=== PATIENT | female | born 1975 | race Caucasian/White ===

== ENCOUNTER 2017-07-07 20:33 | Observation (INO) | payer MEDICAID ==
[2017-07-07] MEDS ORDERED: Sodium Chloride 0.9% 1,000 ML IV ONE (20:41)
[2017-07-07] MEDS ORDERED: Ondansetron 4 MG/2 ML SDV IVPUSH ONE (21:01)
[2017-07-07] MEDS ORDERED: Ketorolac 30 MG/ML SDV IVPUSH ONE (21:01)
--- NOTE | 2017-07-07 21:01 | EDM.PDOC ---
<LometaNima Floresn - Last Filed: 07/08/17 00:30> ED HPI GENERAL MEDICAL PROBLEM - General Chief Complaint: Abdominal Pain Stated Complaint: PT HAS STOMACH PAINS Time Seen by Provider: 07/07/17 20:40 - History of Present Illness INITIAL COMMENTS - FREE TEXT/NARRATIVE: I've seen and evaluated the patient agree with above Nausea vomiting diarrhea over the last week guarding with rebound tenderness obturator positive Stable afebrile White count 6 Assessment Gastroenteritis Appendix tip in large no secondary inflammatory changes Plan Patient discussed with Dr. Gruber will admit the patient for observation with the hospitalist service Dr. Gruber will reevaluate in consult - Related Data Allergies Allergy/AdvReac Type Severity Reaction Status Date / Time clarithromycin [From Biaxin] Allergy Hives Verified 07/07/17 20:47 sulfamethoxazole Allergy Hives Verified 07/07/17 20:47 [From Bactrim] trimethoprim [From Bactrim] Allergy Hives Verified 07/07/17 20:47 Home Meds: Home Meds Omeprazole 40 mg PO DAILY 07/07/17 [History] ED ROS GENERAL - Review of Systems Review Of Systems: ROS reveals no pertinent complaints other than HPI. ED EXAM, GI/ABD - Physical Exam Exam: See Below Course - Vital Signs Last Recorded V/S: Last Vital Signs Temp 97.4 F 07/08/17 15:40 Pulse 76 07/08/17 18:40 Resp 18 07/08/17 18:40 BP 119/66 07/08/17 18:40 Pulse Ox 97 07/08/17 18:40 - Orders/Labs/Meds Orders: Medication Orders Acetaminophen (Tylenol) 650 mg PO Q6H PRN PRN Reason: Pain (mild 1-3) Diphenhydramine HCl (Benadryl) 25 mg PO Q4H PRN PRN Reason: Itching Docusate Sodium (Colace) 100 mg PO BID PRN PRN Reason: Constipation Fentanyl (Sublimaze) 50 mcg IVPUSH Q5M PRN PRN Reason: Pain (severe 7-10) Stop: 07/09/17 14:26 Lactated Ringer's (Ringers, Lactated) 1,000 mls @ 125 mls/hr IV ASDIRECTED [facility] Last Admin: 07/08/17 09:31 Dose: 125 mls/hr Morphine Sulfate (Morphine) 2 mg IVPUSH Q1H PRN PRN Reason: Pain (severe 7-10) Ondansetron HCl (Zofran) 4 mg IVPUSH Q4H PRN PRN Reason: Nausea Oxycodone/Acetaminophen (Percocet 325-5 Mg) 2 tab PO Q4H PRN PRN Reason: Pain (moderate 4-6) Last Admin: 07/08/17 20:26 Dose: 2 tab Promethazine HCl (Phenergan) 25 mg IM Q6H PRN PRN Reason: Nausea Labs: Laboratory Tests 07/07/17 07/07/17 07/07/17 Range/Units 20:50 20:50 20:50 WBC 6.57 (4.0-11.0) K/uL RBC 5.17 (4.30-5.90) M/uL Hgb 14.3 (12.0-16.0) g/dL Hct 42.7 (36.0-46.0) % MCV 82.6 (80.0-98.0) fL MCH 27.7 (27.0-32.0) pg MCHC 33.5 (31.0-37.0) g/dL RDW Std Deviation 42.3 (28.0-62.0) fl RDW Coeff of Jenni 14 (11.0-15.0) % Plt Count 205 (150-400) K/uL MPV 11.40 (7.40-12.00) fL Neut % (Auto) 67.7 (48.0-80.0) % Lymph % (Auto) 24.2 (16.0-40.0) % [place] % (Auto) 7.3 (0.0-15.0) % Eos % (Auto) 0.6 (0.0-7.0) % Baso % (Auto) 0.2 (0.0-1.5) % Neut # (Auto) 4.5 (1.4-5.7) K/uL Lymph # (Auto) 1.6 (0.6-2.4) K/uL [place] # (Auto) 0.5 (0.0-0.8) K/uL Eos # (Auto) 0.0 (0.0-0.7) K/uL Baso # (Auto) 0.0 (0.0-0.1) K/uL Nucleated RBC % 0.0 /100WBC Nucleated RBCs # 0 K/uL Sodium 139 (136-145) mmol/L Potassium 4.5 (3.5-5.1) mmol/L Chloride 105 (98-107) mmol/L Carbon Dioxide 22.8 (21.0-32.0) mmol/L BUN 16 (7.0-18.0) mg/dL Creatinine 0.8 (0.6-1.0) mg/dL Est Cr Clr Drug Dosing 104.48 mL/min Estimated GFR (MDRD) > 60.0 ml/min Glucose 124 H (74-106) mg/dL Calcium 9.2 (8.5-10.1) mg/dL Total Bilirubin 0.3 (0.2-1.0) mg/dL AST 34 (15-37) IU/L ALT 65 H (14-63) IU/L Alkaline Phosphatase 87 (46-116) U/L Total Protein 7.8 (6.4-8.2) g/dL Albumin 4.1 (3.4-5.0) g/dL Globulin 3.7 H (2.0-3.5) g/dL Albumin/Globulin Ratio 1.1 L (1.3-2.8) Amylase (25-115) U/L Lipase (73-393) U/L Urine Color YELLOW Urine Appearance CLEAR Urine pH 6.0 (5.0-8.0) Ur Specific [place] >= 1.030 (1.001-1.035) Urine Protein TRACE (NEGATIVE) mg/dL Urine Glucose (UA) NEGATIVE (NEGATIVE) mg/dL Urine Ketones NEGATIVE (NEGATIVE) mg/dL Urine Occult Blood NEGATIVE (NEGATIVE) Urine Nitrite NEGATIVE (NEGATIVE) Urine Bilirubin SMALL H (NEGATIVE) Urine Ictotest NEGATIVE Urine Urobilinogen 1.0 (<2.0) EU/dL Ur Leukocyte Esterase NEGATIVE (NEGATIVE) Urine RBC 0-1 (0-2/HPF) Urine WBC 0-1 (0-5/HPF) Ur Epithelial Cells MODERATE (NONE-FEW) Urine Bacteria RARE (NEGATIVE) Urine HCG, Qual (NEGATIVE) H. pylori IgG Antibody (NEG) 07/07/17 07/07/17 07/07/17 Range/Units 20:50 20:50 20:50 WBC (4.0-11.0) K/uL RBC (4.30-5.90) M/uL Hgb (12.0-16.0) g/dL Hct (36.0-46.0) % MCV (80.0-98.0) fL MCH (27.0-32.0) pg MCHC (31.0-37.0) g/dL RDW Std Deviation (28.0-62.0) fl RDW Coeff of Jenni (11.0-15.0) % Plt Count (150-400) K/uL MPV (7.40-12.00) fL Neut % (Auto) (48.0-80.0) % Lymph % (Auto) (16.0-40.0) % [place] % (Auto) (0.0-15.0) % Eos % (Auto) (0.0-7.0) % Baso % (Auto) (0.0-1.5) % Neut # (Auto) (1.4-5.7) K/uL Lymph # (Auto) (0.6-2.4) K/uL [place] # (Auto) (0.0-0.8) K/uL Eos # (Auto) (0.0-0.7) K/uL Baso # (Auto) (0.0-0.1) K/uL Nucleated RBC % /100WBC Nucleated RBCs # K/uL Sodium (136-145) mmol/L Potassium (3.5-5.1) mmol/L Chloride (98-107) mmol/L Carbon Dioxide (21.0-32.0) mmol/L BUN (7.0-18.0) mg/dL Creatinine (0.6-1.0) mg/dL Est Cr Clr Drug Dosing mL/min Estimated GFR (MDRD) ml/min Glucose (74-106) mg/dL Calcium (8.5-10.1) mg/dL Total Bilirubin (0.2-1.0) mg/dL AST (15-37) IU/L ALT (14-63) IU/L Alkaline Phosphatase (46-116) U/L Total Protein (6.4-8.2) g/dL Albumin (3.4-5.0) g/dL Globulin (2.0-3.5) g/dL Albumin/Globulin Ratio (1.3-2.8) Amylase 55 (25-115) U/L Lipase 166 (73-393) U/L Urine Color Urine Appearance Urine pH (5.0-8.0) Ur Specific [place] (1.001-1.035) Urine Protein (NEGATIVE) mg/dL Urine Glucose (UA) (NEGATIVE) mg/dL Urine Ketones (NEGATIVE) mg/dL Urine Occult Blood (NEGATIVE) Urine Nitrite (NEGATIVE) Urine Bilirubin (NEGATIVE) Urine Ictotest Urine Urobilinogen (<2.0) EU/dL Ur Leukocyte Esterase (NEGATIVE) Urine RBC (0-2/HPF) Urine WBC (0-5/HPF) Ur Epithelial Cells (NONE-FEW) Urine Bacteria (NEGATIVE) Urine HCG, Qual NEGATIVE (NEGATIVE) H. pylori IgG Antibody NEGATIVE (NEG) Meds: Medications Generic Name Dose Route Start Last Admin Trade Name Frefaustino PRN Reason Stop Dose Admin Acetaminophen 650 mg 07/08/17 15:06 Tylenol PO Q6H PRN Pain (mild 1-3) Diphenhydramine HCl 25 mg 07/08/17 15:06 Benadryl PO Q4H PRN Itching Docusate Sodium 100 mg 07/08/17 15:06 Colace PO BID PRN Constipation Fentanyl 50 mcg 07/08/17 14:26 Sublimaze IVPUSH 07/09/17 14:26 Q5M PRN Pain (severe 7-10) Lactated Ringer's 1,000 mls @ 125 mls/hr 07/08/17 00:45 07/08/17 09:31 Ringers, Lactated IV 125 mls/hr ASDIRECTED ALMA DELIA Administration Morphine Sulfate 2 mg 07/08/17 15:11 Morphine IVPUSH Q1H PRN Pain (severe 7-10) Ondansetron HCl 4 mg 07/08/17 00:34 Zofran IVPUSH Q4H PRN Nausea Oxycodone/Acetaminophen 2 tab 07/08/17 15:06 07/08/17 20:26 Percocet 325-5 Mg PO 2 tab Q4H PRN Administration Pain (moderate 4-6) Promethazine HCl 25 mg 07/08/17 15:06 Phenergan IM Q6H PRN Nausea Discontinued Medications Generic Name Dose Route Start Last Admin Trade Name Freq PRN Reason Stop Dose Admin Bupivacaine HCl Confirm 07/08/17 11:51 Sensorcaine-Mpf 0.5% Administered 07/08/17 11:52 Dose 10 ml .ROUTE .STK-MED ONE Bupivacaine HCl Confirm 07/08/17 12:47 Sensorcaine-Mpf 0.5% Administered 07/08/17 12:48 Dose 30 ml .ROUTE .STK-MED ONE Cefazolin Sodium Confirm 07/08/17 11:51 Ancef Administered 07/08/17 11:52 Dose 1 gm .ROUTE .STK-MED ONE Cefazolin Sodium Confirm 07/08/17 12:46 Ancef Administered 07/08/17 12:47 Dose 1 gm .ROUTE .STK-MED ONE Cefoxitin Sodium Confirm 07/08/17 14:04 Mefoxin Administered 07/08/17 14:05 Dose 1 gm .ROUTE .STK-MED ONE Dicyclomine HCl 10 mg 07/07/17 21:30 07/07/17 21:57 Bentyl PO 07/07/17 21:31 10 mg ONETIME ONE Administration Fentanyl Confirm 07/08/17 12:57 Sublimaze Administered 07/08/17 12:58 Dose 250 mcg .ROUTE .STK-MED ONE Fentanyl Confirm 07/08/17 13:05 Sublimaze Administered 07/08/17 13:06 Dose 100 mcg .ROUTE .STK-MED ONE Fentanyl Confirm 07/08/17 14:10 Sublimaze Administered 07/08/17 14:11 Dose 100 mcg .ROUTE .STK-MED ONE Sodium Chloride 1,000 mls @ 999 mls/hr 07/07/17 20:41 07/07/17 20:51 Normal Saline IV 07/07/17 21:41 999 mls/hr STAT ONE Administration Sodium Chloride 1,000 mls @ 125 mls/hr 07/08/17 00:30 07/08/17 00:40 Normal Saline IV 125 mls/hr STAT ALMA DELIA Administration Sodium Chloride 1,000 mls @ 125 mls/hr 07/08/17 00:45 Normal Saline IV STAT ALMA DELIA Cefoxitin Sodium 2 gm/ Premix 50 mls @ 100 mls/hr 07/08/17 07:26 07/08/17 08: 44 IV 07/08/17 07:55 100 mls/hr ONETIME ONE Administration Iopamidol 100 ml 07/07/17 21:09 07/07/17 21:11 Isovue Multipack-370 (76%) IVPUSH 07/07/17 21:10 100 ml ONETIME STA Administration Ketorolac Tromethamine 30 mg 07/07/17 21:01 07/07/17 21:08 Toradol IVPUSH 07/07/17 21:02 30 mg ONETIME ONE Administration Lidocaine Confirm 07/08/17 12:56 Xylocaine-Mpf 2% Administered 07/08/17 12:57 Dose 10 ml .ROUTE .STK-MED ONE Midazolam HCl Confirm 07/08/17 12:57 Versed 1 Mg/Ml Administered 07/08/17 12:58 Dose 2 mg .ROUTE .STK-MED ONE Morphine Sulfate 2 mg 07/08/17 00:34 07/08/17 02:01 Morphine IVPUSH 07/09/17 00:35 2 mg Q2H PRN Administration Pain (severe 7-10) Morphine Sulfate 2 mg 07/08/17 07:30 Morphine IVPUSH Q2H PRN Pain (severe 7-10) Ondansetron HCl 4 mg 07/07/17 21:01 07/07/17 21:09 Zofran IVPUSH 07/07/17 21:02 4 mg ONETIME ONE Administration Ondansetron HCl Confirm 07/08/17 14:39 Zofran Administered 07/08/17 14:40 Dose 4 mg .ROUTE .STK-MED ONE Propofol Confirm 07/08/17 12:57 Diprivan 20 Ml Administered 07/08/17 12:58 Dose 400 mg .ROUTE .STK-MED ONE Rocuronium Mcdougal Confirm 07/08/17 12:57 Zemuron Administered 07/08/17 12:58 Dose 100 mg .ROUTE .STK-MED ONE Departure - Departure Time of Disposition: 00:31 Disposition: Refer to Observation Condition: Fair Clinical Impression: Gastroenteritis Abdominal pain Qualifiers: Abdominal location: right lower quadrant Qualified Code(s): R10.31 - Right lower quadrant pain - Discharge Information <Chely Tena E - Last Filed: 07/08/17 20:39> ED HPI GENERAL MEDICAL PROBLEM - General Source of Information: Reports: Patient History Limitations: Reports: No Limitations - History of Present Illness INITIAL COMMENTS - FREE TEXT/NARRATIVE: HISTORY AND PHYSICAL: History of present illness: Patient is a 42-year-old female who presents to the emergency room with complaints of generalized abdominal pain, nausea and diarrhea 1 week. She states that she saw a provider 4-5 days ago and was diagnosed with viral gastroenteritis based on her symptoms. She states her symptoms have not improved since that time and is concerned that "something worse going on". Pain starts to the low abdomen and radiates up to her epigastrium. Denies any vaginal bleeding, discharge. Denies any dysuria. She denies any fever, chills, chest pain or shortness of breath. History of stomach ulcers which she intermittently takes Prilosec for. Review of systems: As per history of present illness and below otherwise all systems reviewed and negative. Past medical history: As per history of present illness and as reviewed below otherwise noncontributory. Surgical history: As per history of present illness and as reviewed below otherwise noncontributory. Social history: No reported history of drug or alcohol abuse. Family history: As per history of present illness and as reviewed below otherwise noncontributory. Physical exam: Gen.: Well-developed and well-nourished 42-year-old female. Alert and oriented. Nontoxic appearing and in no acute distress. HEENT: Atraumatic, normocephalic, pupils reactive, negative for conjunctival pallor or scleral icterus, mucous membranes moist, throat clear, neck supple, nontender, trachea midline. Lungs: Clear to auscultation, breath sounds equal bilaterally, chest nontender. Heart: S1S2, regular rate and rhythm Abdomen: Soft, nondistended, use mild tenderness throughout. No rebound tenderness. Negative for masses or hepatosplenomegaly. Negative for costovertebral tenderness. Pelvis: Stable nontender. Genitourinary: Deferred. Rectal: Deferred. Extremities: Atraumatic, negative for cords or calf pain. Neurovascular unremarkable. Neuro: Awake, alert, oriented. Cranial nerves II through XII unremarkable. Cerebellum unremarkable. Motor and sensory unremarkable throughout. Exam nonfocal. CBC, CMP, amylase, lipase, H. pylori and UA/urine are within normal limits. CT of the abdomen/pelvis results are pending. Patient signed out to Dr. Grace at 2200. He will disposition the patient. Diagnostics: CBC, CMP, amylase, lipase, H.pylori, CT abdomen and pelvis Therapeutics: IV fluid, Zofran, Toradol, Bentyl Impression: Abdominal pain r/o early appendicitis Plan: Observation admission to Med/surg Definitive disposition and diagnosis as appropriate pending reevaluation and review of above. 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, Fibroids, Other (See Below) Other OB/BYN History: ovarian cyst x 3 Psychiatric History: Reports: Depression - Past Surgical History Female Surgical History: Reports: Breast Biopsy, Cystectomy Social & Family History - Family History Family Medical History: Noncontributory GI: Reports: GERD, GI bleed, Other (See Below) Other GI Family History: Chron's disease : Reports: Cystic Kidney Disease, Renal Calculus OBGYN: Reports: Ectopic , Fibroids Neurological: Reports: MS, Seizure Psychiatric: Reports: Depression Endocrine/Metabolic: Reports: Diabetes, type II Oncologic: Reports: Brain, Breast - Tobacco Use Smoking Status *Q: Never Smoker Years of Tobacco use: 20 Second Hand Smoke Exposure: Yes - Alcohol Use Days Per Week of Alcohol Use: 0 Number of Drinks Per Day: 0 Total Drinks Per Week: 0 - Recreational Drug Use Recreational Drug Use: No Drug Use in Last 12 Months: No Course - Orders/Labs/Meds Labs: Laboratory Tests 07/07/17 07/07/17 07/07/17 Range/Units 20:50 20:50 20:50 WBC 6.57 (4.0-11.0) K/uL RBC 5.17 (4.30-5.90) M/uL Hgb 14.3 (12.0-16.0) g/dL Hct 42.7 (36.0-46.0) % MCV 82.6 (80.0-98.0) fL MCH 27.7 (27.0-32.0) pg MCHC 33.5 (31.0-37.0) g/dL RDW Std Deviation 42.3 (28.0-62.0) fl RDW Coeff of Jenni 14 (11.0-15.0) % Plt Count 205 (150-400) K/uL MPV 11.40 (7.40-12.00) fL Neut % (Auto) 67.7 (48.0-80.0) % Lymph % (Auto) 24.2 (16.0-40.0) % [place] % (Auto) 7.3 (0.0-15.0) % Eos % (Auto) 0.6 (0.0-7.0) % Baso % (Auto) 0.2 (0.0-1.5) % Neut # (Auto) 4.5 (1.4-5.7) K/uL Lymph # (Auto) 1.6 (0.6-2.4) K/uL [place] # (Auto) 0.5 (0.0-0.8) K/uL Eos # (Auto) 0.0 (0.0-0.7) K/uL Baso # (Auto) 0.0 (0.0-0.1) K/uL Nucleated RBC % 0.0 /100WBC Nucleated RBCs # 0 K/uL Sodium 139 (136-145) mmol/L Potassium 4.5 (3.5-5.1) mmol/L Chloride 105 (98-107) mmol/L Carbon Dioxide 22.8 (21.0-32.0) mmol/L BUN 16 (7.0-18.0) mg/dL Creatinine 0.8 (0.6-1.0) mg/dL Est Cr Clr Drug Dosing 104.48 mL/min Estimated GFR (MDRD) > 60.0 ml/min Glucose 124 H (74-106) mg/dL Calcium 9.2 (8.5-10.1) mg/dL Total Bilirubin 0.3 (0.2-1.0) mg/dL AST 34 (15-37) IU/L ALT 65 H (14-63) IU/L Alkaline Phosphatase 87 (46-116) U/L Total Protein 7.8 (6.4-8.2) g/dL Albumin 4.1 (3.4-5.0) g/dL Globulin 3.7 H (2.0-3.5) g/dL Albumin/Globulin Ratio 1.1 L (1.3-2.8) Amylase (25-115) U/L Lipase (73-393) U/L Urine Color YELLOW Urine Appearance CLEAR Urine pH 6.0 (5.0-8.0) Ur Specific [place] >= 1.030 (1.001-1.035) Urine Protein TRACE (NEGATIVE) mg/dL Urine Glucose (UA) NEGATIVE (NEGATIVE) mg/dL Urine Ketones NEGATIVE (NEGATIVE) mg/dL Urine Occult Blood NEGATIVE (NEGATIVE) Urine Nitrite NEGATIVE (NEGATIVE) Urine Bilirubin SMALL H (NEGATIVE) Urine Ictotest NEGATIVE Urine Urobilinogen 1.0 (<2.0) EU/dL Ur Leukocyte Esterase NEGATIVE (NEGATIVE) Urine RBC 0-1 (0-2/HPF) Urine WBC 0-1 (0-5/HPF) Ur Epithelial Cells MODERATE (NONE-FEW) Urine Bacteria RARE (NEGATIVE) Urine HCG, Qual (NEGATIVE) H. pylori IgG Antibody (NEG) 07/07/17 07/07/17 07/07/17 Range/Units 20:50 20:50 20:50 WBC (4.0-11.0) K/uL RBC (4.30-5.90) M/uL Hgb (12.0-16.0) g/dL Hct (36.0-46.0) % MCV (80.0-98.0) fL MCH (27.0-32.0) pg MCHC (31.0-37.0) g/dL RDW Std Deviation (28.0-62.0) fl RDW Coeff of Jenni (11.0-15.0) % Plt Count (150-400) K/uL MPV (7.40-12.00) fL Neut % (Auto) (48.0-80.0) % Lymph % (Auto) (16.0-40.0) % [place] % (Auto) (0.0-15.0) % Eos % (Auto) (0.0-7.0) % Baso % (Auto) (0.0-1.5) % Neut # (Auto) (1.4-5.7) K/uL Lymph # (Auto) (0.6-2.4) K/uL [place] # (Auto) (0.0-0.8) K/uL Eos # (Auto) (0.0-0.7) K/uL Baso # (Auto) (0.0-0.1) K/uL Nucleated RBC % /100WBC Nucleated RBCs # K/uL Sodium (136-145) mmol/L Potassium (3.5-5.1) mmol/L Chloride (98-107) mmol/L Carbon Dioxide (21.0-32.0) mmol/L BUN (7.0-18.0) mg/dL Creatinine (0.6-1.0) mg/dL Est Cr Clr Drug Dosing mL/min Estimated GFR (MDRD) ml/min Glucose (74-106) mg/dL Calcium (8.5-10.1) mg/dL Total Bilirubin (0.2-1.0) mg/dL AST (15-37) IU/L ALT (14-63) IU/L Alkaline Phosphatase (46-116) U/L Total Protein (6.4-8.2) g/dL Albumin (3.4-5.0) g/dL Globulin (2.0-3.5) g/dL Albumin/Globulin Ratio (1.3-2.8) Amylase 55 (25-115) U/L Lipase 166 (73-393) U/L Urine Color Urine Appearance Urine pH (5.0-8.0) Ur Specific [place] (1.001-1.035) Urine Protein (NEGATIVE) mg/dL Urine Glucose (UA) (NEGATIVE) mg/dL Urine Ketones (NEGATIVE) mg/dL Urine Occult Blood (NEGATIVE) Urine Nitrite (NEGATIVE) Urine Bilirubin (NEGATIVE) Urine Ictotest Urine Urobilinogen (<2.0) EU/dL Ur Leukocyte Esterase (NEGATIVE) Urine RBC (0-2/HPF) Urine WBC (0-5/HPF) Ur Epithelial Cells (NONE-FEW) Urine Bacteria (NEGATIVE) Urine HCG, Qual NEGATIVE (NEGATIVE) H. pylori IgG Antibody NEGATIVE (NEG) Departure - Departure Condition: Fair
[2017-07-07] MEDS ORDERED: Iopamidol 755 MG/ML 500 ML Multipack Bottle IVPUSH STA (21:09)
[2017-07-07 21:26] LABS: CHLORIDE,CL 105 mmol/L (98-107); SODIUM,NA 139 mmol/L (136-145)
[2017-07-07] MEDS ORDERED: Dicyclomine 10 MG Cap PO ONE (21:30)
[2017-07-08] MEDS ORDERED: Sodium Chloride 0.9% 1,000 ML IV SCH ×2 (00:30→00:45)
[2017-07-08] MEDS ORDERED: Ondansetron 4 MG/2 ML SDV IVPUSH PRN (00:34)
[2017-07-08] MEDS ORDERED: Morphine 10 MG/ML Syringe IVPUSH PRN (00:34)
[2017-07-08] MEDS ORDERED: Lactated Ringers 1,000 ML IV SCH (00:45)
[2017-07-08 05:57] LABS: CHLORIDE,CL 108 mmol/L (98-107); SODIUM,NA 141 mmol/L (136-145)
--- NOTE | 2017-07-08 07:09 | PCM.PREANE ---
Preanesthetic Assessment - Anesthesia/Transfusion/Family Hx Anesthesia History: Prior Anesthesia Without Reaction Family History of Anesthesia Reaction: No Transfusion History: No Prior Transfusion(s) - Review of Systems General: No Symptoms Pulmonary: No Symptoms Cardiovascular: No Symptoms Gastrointestinal: No Symptoms Neurological: No Symptoms Other: Reports: None - Physical Assessment NPO Status Date: 07/08/17 NPO Status Time: 01:30 O2 Sat by Pulse Oximetry: 98 Respiratory Rate: 19 Vital Signs: Last Vital Signs Temp 98.4 F 07/08/17 04:00 Pulse 88 07/08/17 04:00 Resp 19 07/08/17 04:00 BP 132/80 07/08/17 04:00 Pulse Ox 98 07/08/17 04:00 Height: 5 ft 10.87 in Weight: 90 kg ASA Class: 2E Mental Status: Alert & Oriented x3 Airway Class: Mallampati = 2 Dentition: Reports: Normal Dentition Thyro-Mental Finger Breadths: 3 Mouth Opening Finger Breadths: 3 ROM/Head Extension: Full Lungs: Clear to Auscultation, Normal Respiratory Effort Cardiovascular: Regular Rate, Regular Rhythm - Lab Values: Laboratory Last Values WBC 5.88 K/uL (4.0-11.0) 07/08/17 04:47 RBC 4.56 M/uL (4.30-5.90) 07/08/17 04:47 Hgb 12.5 g/dL (12.0-16.0) 07/08/17 04:47 Hct 37.7 % (36.0-46.0) 07/08/17 04:47 MCV 82.7 fL (80.0-98.0) 07/08/17 04:47 MCH 27.4 pg (27.0-32.0) 07/08/17 04:47 MCHC 33.2 g/dL (31.0-37.0) 07/08/17 04:47 RDW Std Deviation 42.9 fl (28.0-62.0) 07/08/17 04:47 RDW Coeff of Jenni 14 % (11.0-15.0) 07/08/17 04:47 Plt Count 171 K/uL (150-400) 07/08/17 04:47 MPV 10.70 fL (7.40-12.00) 07/08/17 04:47 Neut % (Auto) 58.6 % (48.0-80.0) 07/08/17 04:47 Lymph % (Auto) 32.5 % (16.0-40.0) 07/08/17 04:47 [place] % (Auto) 8.0 % (0.0-15.0) 07/08/17 04:47 Eos % (Auto) 0.7 % (0.0-7.0) 07/08/17 04:47 Baso % (Auto) 0.2 % (0.0-1.5) 07/08/17 04:47 Neut # (Auto) 3.5 K/uL (1.4-5.7) 07/08/17 04:47 Lymph # (Auto) 1.9 K/uL (0.6-2.4) 07/08/17 04:47 [place] # (Auto) 0.5 K/uL (0.0-0.8) 07/08/17 04:47 Eos # (Auto) 0.0 K/uL (0.0-0.7) 07/08/17 04:47 Baso # (Auto) 0.0 K/uL (0.0-0.1) 07/08/17 04:47 Nucleated RBC % 0.0 /100WBC 07/08/17 04:47 Nucleated RBCs # 0 K/uL 07/08/17 04:47 Sodium 141 mmol/L (136-145) 07/08/17 04:47 Potassium 3.8 mmol/L (3.5-5.1) 07/08/17 04:47 Chloride 108 mmol/L (98-107) H 07/08/17 04:47 Carbon Dioxide 25.2 mmol/L (21.0-32.0) 07/08/17 04:47 BUN 14 mg/dL (7.0-18.0) 07/08/17 04:47 Creatinine 0.7 mg/dL (0.6-1.0) 07/08/17 04:47 Est Cr Clr Drug Dosing 118.88 mL/min 07/08/17 04:47 Estimated GFR (MDRD) > 60.0 ml/min 07/08/17 04:47 Glucose 108 mg/dL (74-106) H 07/08/17 04:47 Calcium 8.4 mg/dL (8.5-10.1) L 07/08/17 04:47 Phosphorus 3.3 mg/dL (2.6-4.7) 07/08/17 04:47 Magnesium 1.5 mg/dL (1.5-2.0) 07/08/17 04:47 Total Bilirubin 0.3 mg/dL (0.2-1.0) 07/08/17 04:47 AST 23 IU/L (15-37) 07/08/17 04:47 ALT 54 IU/L (14-63) 07/08/17 04:47 Alkaline Phosphatase 65 U/L (46-116) 07/08/17 04:47 Total Protein 6.1 g/dL (6.4-8.2) L 07/08/17 04:47 Albumin 3.2 g/dL (3.4-5.0) L 07/08/17 04:47 Globulin 2.9 g/dL (2.0-3.5) 07/08/17 04:47 Albumin/Globulin Ratio 1.1 (1.3-2.8) L 07/08/17 04:47 Amylase 55 U/L (25-115) 07/07/17 20:50 Lipase 166 U/L (73-393) 07/07/17 20:50 Urine Color YELLOW 07/07/17 20:50 Urine Appearance CLEAR 07/07/17 20:50 Urine pH 6.0 (5.0-8.0) 07/07/17 20:50 Ur Specific [place] >= 1.030 (1.001-1.035) 07/07/17 20:50 Urine Protein TRACE mg/dL (NEGATIVE) 07/07/17 20:50 Urine Glucose (UA) NEGATIVE mg/dL (NEGATIVE) 07/07/17 20:50 Urine Ketones NEGATIVE mg/dL (NEGATIVE) 07/07/17 20:50 Urine Occult Blood NEGATIVE (NEGATIVE) 07/07/17 20:50 Urine Nitrite NEGATIVE (NEGATIVE) 07/07/17 20:50 Urine Bilirubin SMALL (NEGATIVE) H 07/07/17 20:50 Urine Ictotest NEGATIVE 07/07/17 20:50 Urine Urobilinogen 1.0 EU/dL (<2.0) 07/07/17 20:50 Ur Leukocyte Esterase NEGATIVE (NEGATIVE) 07/07/17 20:50 Urine RBC 0-1 (0-2/HPF) 07/07/17 20:50 Urine WBC 0-1 (0-5/HPF) 07/07/17 20:50 Ur Epithelial Cells MODERATE (NONE-FEW) 07/07/17 20:50 Urine Bacteria RARE (NEGATIVE) 07/07/17 20:50 Urine HCG, Qual NEGATIVE (NEGATIVE) 07/07/17 20:50 H. pylori IgG Antibody NEGATIVE (NEG) 07/07/17 20:50 - Allergies Allergies/Adverse Reactions: Allergies Allergy/AdvReac Type Severity Reaction Status Date / Time clarithromycin [From Biaxin] Allergy Hives Verified 07/07/17 20:47 sulfamethoxazole Allergy Hives Verified 07/07/17 20:47 [From Bactrim] trimethoprim [From Bactrim] Allergy Hives Verified 07/07/17 20:47 - Acknowledgements Anesthesia Type Planned: General Anesthesia Pt an Appropriate Candidate for the Planned Anesthesia: Yes Alternatives and Risks of Anesthesia Discussed w Pt/Guardian: Yes Pt/Guardian Understands and Agrees with Anesthesia Plan: Yes PreAnesthesia Questionnaire HEENT History: Reports: None Cardiovascular History: Reports: None Respiratory History: Reports: Other (See Below) (Previous Smoker, quit 5 years ago) Gastrointestinal History: Reports: GERD, Other (See Below) (Previous stomach ulcer in the last 12 months) Genitourinary History: Reports: Other (See Below) (Past history of renal stones) 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, 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, Other (See Below) Other OB/BYN History: ovarian cyst x 3 Musculoskeletal History: Reports: None Neurological History: Reports: None Psychiatric History: Reports: Depression Endocrine/Metabolic History: Reports: None Hematologic History: Reports: None Immunologic History: Reports: None Oncologic (Cancer) History: Reports: None Dermatologic History: Reports: None - Infectious Disease History Infectious Disease History: Reports: None - Past Surgical History Female Surgical History: Reports: Breast Biopsy, Cystectomy - SUBSTANCE USE Smoking Status *Q: Former Smoker Tobacco Use Within Last Twelve Months: No Second Hand Smoke Exposure: Yes Days Per Week of Alcohol Use: 0 Number of Drinks Per Day: 0 Total Drinks Per Week: 0 Recreational Drug Use History: No - HOME MEDS Home Medications: Home Meds Omeprazole 40 mg PO DAILY 07/07/17 [History] - CURRENT (IN HOUSE) MEDS Current Meds: Current Medications Sodium Chloride (Normal Saline) 1,000 mls @ 125 mls/hr IV STAT ALMA DELIA Last Admin: 07/08/17 00:40 Dose: 125 mls/hr Sodium Chloride (Normal Saline) 1,000 mls @ 125 mls/hr IV STAT ALMA DELIA Lactated Ringer's (Ringers, Lactated) 1,000 mls @ 125 mls/hr IV ASDIRECTED ALMA DELIA Morphine Sulfate (Morphine) 2 mg IVPUSH Q2H PRN PRN Reason: Pain (severe 7-10) Stop: 07/09/17 00:35 Last Admin: 07/08/17 02:01 Dose: 2 mg Ondansetron HCl (Zofran) 4 mg IVPUSH Q4H PRN PRN Reason: Nausea Discontinued Medications Dicyclomine HCl (Bentyl) 10 mg PO ONETIME ONE Stop: 07/07/17 21:31 Last Admin: 07/07/17 21:57 Dose: 10 mg Sodium Chloride (Normal Saline) 1,000 mls @ 999 mls/hr IV STAT ONE Stop: 07/07/17 21:41 Last Admin: 07/07/17 20:51 Dose: 999 mls/hr Iopamidol (Isovue Multipack-370 (76%)) 100 ml IVPUSH ONETIME STA Stop: 07/07/17 21:10 Last Admin: 07/07/17 21:11 Dose: 100 ml Ketorolac Tromethamine (Toradol) 30 mg IVPUSH ONETIME ONE Stop: 07/07/17 21:02 Last Admin: 07/07/17 21:08 Dose: 30 mg Ondansetron HCl (Zofran) 4 mg IVPUSH ONETIME ONE Stop: 07/07/17 21:02 Last Admin: 07/07/17 21:09 Dose: 4 mg
[2017-07-08] MEDS ORDERED: cefOXitin 2 GM in Premix Bag 1 BAG IV ONE (07:26)
[2017-07-08] MEDS ORDERED: Morphine 4 MG/ML Syringe IVPUSH PRN ×2 (07:30→15:11)
--- NOTE | 2017-07-08 07:32 | PCM.CONS ---
H&P History of Present Illness - General Date of Service: 07/08/17 Admit Problem/Dx: Admission Diagnosis/Problem Admission Diagnosis/Problem Abdominal pain Source of Information: Patient History Limitations: Reports: No Limitations - History of Present Illness Symptom Onset Date: 07/05/17 Duration of Symptoms: Reports: Getting Worse Location: Reports: Abdomen Quality: Reports: Ache, Pressure Severity: Moderate Improves with: Reports: Rest Worsens with: Reports: Movement Context: Reports: Sick Contact Associated Symptoms: Reports: Nausea/Vomiting, Other (Diarrhea) Umbilical ARea Pain Score (Numeric/FACES): 4 - Related Data Allergies/Adverse Reactions: Allergies Allergy/AdvReac Type Severity Reaction Status Date / Time clarithromycin [From Biaxin] Allergy Hives Verified 07/07/17 20:47 sulfamethoxazole Allergy Hives Verified 07/07/17 20:47 [From Bactrim] trimethoprim [From Bactrim] Allergy Hives Verified 07/07/17 20:47 Home Medications: Home Meds Omeprazole 40 mg PO DAILY 07/07/17 [History] Past Medical History HEENT History: Reports: None Cardiovascular History: Reports: None Respiratory History: Reports: Other (See Below) (Previous Smoker, quit 5 years ago) Gastrointestinal History: Reports: GERD, Other (See Below) (Previous stomach ulcer in the last 12 months) Genitourinary History: Reports: Other (See Below) (Past history of renal stones) 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, 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, 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 (See Below) Other OB/BYN History: ovarian cyst x 3 Musculoskeletal History: Reports: None Neurological History: Reports: None Psychiatric History: Reports: Depression Endocrine/Metabolic History: Reports: None Hematologic History: Reports: None Immunologic History: Reports: None Oncologic (Cancer) History: Reports: None Dermatologic History: Reports: None - Infectious Disease History Infectious Disease History: Reports: None - Past Surgical History Female Surgical History: Reports: Breast Biopsy, Cystectomy Social & Family History - Family History Family Medical History: Noncontributory GI: Reports: GERD, GI bleed, Other (See Below) Other GI Family History: Chron's disease : Reports: Cystic Kidney Disease, Renal Calculus OBGYN: Reports: Ectopic , Fibroids Neurological: Reports: MS, Seizure Psychiatric: Reports: Depression Endocrine/Metabolic: Reports: Diabetes, type II Oncologic: Reports: Brain, Breast - Tobacco Use Smoking Status *Q: Former Smoker Years of Tobacco use: 20 Used Tobacco, but Quit: Yes Month/Year Tobacco Last Used: 2012 Second Hand Smoke Exposure: Yes - Alcohol Use Days Per Week of Alcohol Use: 0 Number of Drinks Per Day: 0 Total Drinks Per Week: 0 - Recreational Drug Use Recreational Drug Use: No Drug Use in Last 12 Months: No H&P Review of Systems - Review of Systems: Review Of Systems: See Below General: Reports: Decreased Appetite. Denies: Fever, Chills HEENT: Reports: No Symptoms Pulmonary: Denies: Shortness of Breath, Wheezing Cardiovascular: Denies: Chest Pain Gastrointestinal: Reports: Abdominal Pain, Anorexia, Diarrhea, Nausea, Vomiting Genitourinary: Reports: No Symptoms Musculoskeletal: Reports: No Symptoms Skin: Reports: No Symptoms Psychiatric: Reports: No Symptoms Neurological: Reports: No Symptoms Hematologic/Lymphatic: Reports: No Symptoms Immunologic: Reports: No Symptoms Exam - Exam Exam: See Below - Vital Signs Vital Signs: Last Vital Signs Temp 98.4 F 07/08/17 04:00 Pulse 88 07/08/17 04:00 Resp 19 07/08/17 07:09 BP 132/80 07/08/17 04:00 Pulse Ox 98 07/08/17 07:09 Weight: 198 lb 6.656 oz - Exam General: Alert, Oriented, Cooperative, Moderate Distress HEENT: Conjunctiva Clear, EACs Clear, Pupils Equal, Pupils Reactive Neck: Supple, Trachea Midline Lungs: Clear to Auscultation, Normal Respiratory Effort Cardiovascular: Regular Rate, Regular Rhythm. No: Tachycardia GI/Abdominal Exam: Normal Bowel Sounds, Soft, No Distention, Rebound, Tender, Other (Patient is quite tender over McBurney's point.). No: Guarding, Rigid (Female) Exam: Normal External Exam Rectal (Female) Exam: Deferred Back Exam: Normal Inspection Extremities: Normal Inspection, Normal Range of Motion Peripheral Pulses: 4+: Posterior Tibial (L), Posterior Tibial (R), Dorsalis Pedis (L), Dorsalis Pedis (R) Skin: Warm, Dry, Intact - Patient Data Lab Results Last 24 hrs: Laboratory Results - last 24 hr 07/08/17 07/08/17 Range/Units 04:47 04:47 WBC 5.88 (4.0-11.0) K/uL RBC 4.56 (4.30-5.90) M/uL Hgb 12.5 (12.0-16.0) g/dL Hct 37.7 (36.0-46.0) % MCV 82.7 (80.0-98.0) fL MCH 27.4 (27.0-32.0) pg MCHC 33.2 (31.0-37.0) g/dL RDW Std Deviation 42.9 (28.0-62.0) fl RDW Coeff of Jenni 14 (11.0-15.0) % Plt Count 171 (150-400) K/uL MPV 10.70 (7.40-12.00) fL Neut % (Auto) 58.6 (48.0-80.0) % Lymph % (Auto) 32.5 (16.0-40.0) % [place] % (Auto) 8.0 (0.0-15.0) % Eos % (Auto) 0.7 (0.0-7.0) % Baso % (Auto) 0.2 (0.0-1.5) % Neut # (Auto) 3.5 (1.4-5.7) K/uL Lymph # (Auto) 1.9 (0.6-2.4) K/uL [place] # (Auto) 0.5 (0.0-0.8) K/uL Eos # (Auto) 0.0 (0.0-0.7) K/uL Baso # (Auto) 0.0 (0.0-0.1) K/uL Nucleated RBC % 0.0 /100WBC Nucleated RBCs # 0 K/uL Sodium 141 (136-145) mmol/L Potassium 3.8 (3.5-5.1) mmol/L Chloride 108 H (98-107) mmol/L Carbon Dioxide 25.2 (21.0-32.0) mmol/L BUN 14 (7.0-18.0) mg/dL Creatinine 0.7 (0.6-1.0) mg/dL Est Cr Clr Drug Dosing 118.88 mL/min Estimated GFR (MDRD) > 60.0 ml/min Glucose 108 H (74-106) mg/dL Calcium 8.4 L (8.5-10.1) mg/dL Phosphorus 3.3 (2.6-4.7) mg/dL Magnesium 1.5 (1.5-2.0) mg/dL Total Bilirubin 0.3 (0.2-1.0) mg/dL AST 23 (15-37) IU/L ALT 54 (14-63) IU/L Alkaline Phosphatase 65 (46-116) U/L Total Protein 6.1 L (6.4-8.2) g/dL Albumin 3.2 L (3.4-5.0) g/dL Globulin 2.9 (2.0-3.5) g/dL Albumin/Globulin Ratio 1.1 L (1.3-2.8) Result Diagrams: 07/08/17 04:47 07/08/17 04:47 Consult PN Assessment/Plan Procedures: Procedures ASSAY GLUCOSE BLOOD QUANT (06/25/15) ASSAY OF LIPASE (06/17/16) ASSAY OF PROGESTERONE (09/14/14) ASSAY THYROID STIM HORMONE (03/27/16) CHEST X-RAY 1 VIEW FRONTAL (06/25/14) CHORIONIC GONADOTROPIN ASSAY (09/28/14) CHORIONIC GONADOTROPIN TEST (09/28/14) COMPLETE CBC AUTOMATED (03/27/16) COMPLETE CBC W/AUTO DIFF WBC (05/22/14) COMPREHEN METABOLIC PANEL (09/18/16) CULTURE SCREEN ONLY (04/15/15) ECHO EXAM OF ABDOMEN (05/22/14) EMERGENCY DEPT VISIT (05/22/14) EMERGENCY DEPT VISIT (07/18/13) EMERGENCY DEPT VISIT (07/18/13) GLUCOSE TEST (06/25/15) GLYCOSYLATED HEMOGLOBIN TEST (03/12/15) HELICOBACTER PYLORI ANTIBODY (06/17/16) HPV LOW-RISK TYPES (10/12/14) HYDRATE IV INFUSION ADD-ON (05/22/14) IMMUNOASSAY NONANTIBODY (09/18/16) LAPAROSCOPY LYSIS (06/11/14) METABOLIC PANEL TOTAL CA (06/11/14) PROTHROMBIN TIME (05/22/14) ROUTINE VENIPUNCTURE (06/17/16) SMEAR WET [place] SALINE/INK (05/13/15) THER/PROPH/DIAG INJ IV PUSH (05/22/14) THROMBOPLASTIN TIME PARTIAL (05/22/14) TISSUE EXAM BY PATHOLOGIST (08/29/13) TRANSVAGINAL US NON-OB (07/18/13) TX/PRO/DX INJ NEW DRUG ADDON (05/22/14) URINE BACTERIA CULTURE (06/25/14) URINE CULTURE/COLONY COUNT (10/12/14) URINE TEST (06/11/14) US EXAM ABDOM COMPLETE (06/25/14) US EXAM PELVIC LIMITED (05/22/14) (1) Acute appendicitis SNOMED Code(s): 69644314 Code(s): K35.80 - UNSPECIFIED ACUTE APPENDICITIS Priority: High Current Visit: Yes (2) Abdominal pain SNOMED Code(s): 74687528 Code(s): R10.9 - UNSPECIFIED ABDOMINAL PAIN Priority: High Current Visit : Yes Qualifiers: Abdominal location: right lower quadrant Qualified Code(s): R10.31 - Right lower quadrant pain Problem List Initiated/Reviewed/Updated: Yes My Orders Last 24 Hours: My Active Orders 07/08/17 07:26 Skin Preparation [RC] .PREOP Urinary Catheter Assessment [RC] ASDIRECTED Urinary Catheter Assessment [RC] ASDIRECTED cefOXitin [Mefoxin in Dextrose,Iso-Osm 2 GM/50 ML] 2 gm Premix Bag 1 bag IV ONETIME 07/08/17 07:30 [place] Catheter Insertion [Insert Urinary Catheter] [OM.PC] Q24H Plan: CT scan of the abdomen is read as showing an 11 mm dilatation at the tip of the appendix consistent with an early acute appendicitis without rupture. She also has some mild mesenteric lymphadenopathy. Her physical examination is consistent with an early acute appendicitis. Laparoscopic appendectomy, possible open appendectomy. Both operative procedures, along with the risks, including, but not limited to, bleeding, infection, pneumonia, deep venous thrombosis, pulmonary emboli, myocardial infarction, and adjacent organ injury have been reviewed with the patient who voices understanding, offers no questions and agrees to proceed.
--- NOTE | 2017-07-08 08:14 | PCM.HP ---
H&P History of Present Illness - General Date of Service: 07/08/17 Admit Problem/Dx: Admission Diagnosis/Problem Admission Diagnosis/Problem Abdominal pain Source of Information: Patient History Limitations: Reports: No Limitations - History of Present Illness Initial Comments - Free Text/Narative: This 42 year old female with pmh of endometriosis on Depo provera shots, hx of ovarian cysts , and GERD presented to the ED with 1 week history of abdominal pain, poor appetite and N/V. She reports initially this started last Wednesday with lower diffuse abdominal pain, N/V and some heartburn. She saw her PCP, which felt this wsa gastroenteritis. She reports this continued to worsening and the pain became more intense with general malaise and a temp yesterday of 101 F and slight diarrhea. She denies chest pain SOB or URI. No urinary symptoms. No black or bloody BMs. She quit smoking 4-5 years ago, does not use alcohol or recreational drugs. In the ED labwork WNL, abd CT was obtainted which revealed dilated appendix up to [address] Gruber was consulted for surgical evaluation. She was admitted for abdominal pain. Umbilical ARea Pain Score (Numeric/FACES): 4 - Related Data Allergies/Adverse Reactions: Allergies Allergy/AdvReac Type Severity Reaction Status Date / Time clarithromycin [From Biaxin] Allergy Hives Verified 07/07/17 20:47 sulfamethoxazole Allergy Hives Verified 07/07/17 20:47 [From Bactrim] trimethoprim [From Bactrim] Allergy Hives Verified 07/07/17 20:47 Home Medications: Home Meds Omeprazole 40 mg PO DAILY 07/07/17 [History] Past Medical History HEENT History: Reports: None Cardiovascular History: Reports: None. 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 Denies: CVA, TIA Psychiatric History: Reports: Depression Endocrine/Metabolic History: Reports: None. Denies: Diabetes, Type II, Hypothyroidism Hematologic History: Reports: None Immunologic History: Reports: None Oncologic (Cancer) History: Reports: None Dermatologic History: Reports: None - Infectious Disease History Infectious Disease History: Reports: None - Past Surgical History Female Surgical History: Reports: Breast Biopsy, Cystectomy, Other (See Below ) (ovarian cyst removal x 3) Social & Family History - Family History Family Medical History: Noncontributory GI: Reports: GERD, GI bleed, Other (See Below) Other GI Family History: Chron's disease : Reports: Cystic Kidney Disease, Renal Calculus OBGYN: Reports: Ectopic , Fibroids Neurological: Reports: MS, Seizure Psychiatric: Reports: Depression Endocrine/Metabolic: Reports: Diabetes, type II Oncologic: Reports: Brain, Breast - Tobacco Use Smoking Status *Q: Former Smoker Years of Tobacco use: 20 Used Tobacco, but Quit: Yes Month/Year Tobacco Last Used: 2012 Second Hand Smoke Exposure: Yes - Alcohol Use Alcohol Use History: No Days Per Week of Alcohol Use: 0 Number of Drinks Per Day: 0 Total Drinks Per Week: 0 - Recreational Drug Use Recreational Drug Use: No Drug Use in Last 12 Months: No - Living Situation & Occupation Living situation: Reports: with Family Occupation: Employed H&P Review of Systems - Review of Systems: Review Of Systems: See Below General: Reports: Fever, Malaise, Weakness, Fatigue HEENT: Reports: No Symptoms. Denies: Headaches, Sinus Congestion, Sore Throat, Vertigo Pulmonary: Reports: No Symptoms. Denies: Shortness of Breath, Cough, Sputum Cardiovascular: Reports: No Symptoms. Denies: Chest Pain, Palpitations, Edema Gastrointestinal: Reports: Abdominal Pain, Anorexia, Decreased Appetite, Distension (bloating), Nausea, Vomiting. Denies: Black Stool, Bloody Stool, Hematemesis, Hematochezia, Stool Incontinence Genitourinary: Reports: No Symptoms. Denies: Dysuria, Frequency, Burning, Pain , Urgency Musculoskeletal: Reports: No Symptoms. Denies: Neck Pain Psychiatric: Reports: No Symptoms. Denies: Confusion Hematologic/Lymphatic: Reports: No Symptoms Immunologic: Reports: No Symptoms Exam - Exam Exam: See Below - Vital Signs Vital Signs: Last Vital Signs Temp 98.4 F 07/08/17 04:00 Pulse 88 07/08/17 04:00 Resp 19 07/08/17 07:09 BP 132/80 07/08/17 04:00 Pulse Ox 98 07/08/17 07:09 Weight: 90 kg - Exam Quality Assessment: DVT Prophylaxis General: Alert, Oriented, Cooperative HEENT: Conjunctiva Clear, Hearing Intact, Normal Nasal Septum, Posterior Pharynx Clear, TMs Clear, PERRLA. No: Mucosa Moist & Cecilia (appera slighlty dry , no cracking. ) Neck: Supple, Trachea Midline, 2 Lungs: Clear to Auscultation, Normal Respiratory Effort Cardiovascular: Regular Rate, Regular Rhythm GI/Abdominal Exam: Normal Bowel Sounds, Soft, No Mass, Rebound, Tender (RLQ). No: Distended, Guarding, Rigid Back Exam: Normal Inspection, Full Range of Motion, NT Extremities: Normal Inspection, Normal Range of Motion, Non-Tender, No Pedal Edema, Normal Capillary Refill Neuro Extensive - Mental Status: Alert, Oriented x3, Normal Mood/Affect Neuro Extensive - Motor, Sensory, Reflexes: CN II-XII Intact Psychiatric: Alert, Normal Affect, Normal Mood - Patient Data Lab Results Last 24 hrs: Laboratory Results - last 24 hr 07/08/17 07/08/17 Range/Units 04:47 04:47 WBC 5.88 (4.0-11.0) K/uL RBC 4.56 (4.30-5.90) M/uL Hgb 12.5 (12.0-16.0) g/dL Hct 37.7 (36.0-46.0) % MCV 82.7 (80.0-98.0) fL MCH 27.4 (27.0-32.0) pg MCHC 33.2 (31.0-37.0) g/dL RDW Std Deviation 42.9 (28.0-62.0) fl RDW Coeff of Jenni 14 (11.0-15.0) % Plt Count 171 (150-400) K/uL MPV 10.70 (7.40-12.00) fL Neut % (Auto) 58.6 (48.0-80.0) % Lymph % (Auto) 32.5 (16.0-40.0) % Elliott % (Auto) 8.0 (0.0-15.0) % Eos % (Auto) 0.7 (0.0-7.0) % Baso % (Auto) 0.2 (0.0-1.5) % Neut # (Auto) 3.5 (1.4-5.7) K/uL Lymph # (Auto) 1.9 (0.6-2.4) K/uL Elliott # (Auto) 0.5 (0.0-0.8) K/uL Eos # (Auto) 0.0 (0.0-0.7) K/uL Baso # (Auto) 0.0 (0.0-0.1) K/uL Nucleated RBC % 0.0 /100WBC Nucleated RBCs # 0 K/uL Sodium 141 (136-145) mmol/L Potassium 3.8 (3.5-5.1) mmol/L Chloride 108 H (98-107) mmol/L Carbon Dioxide 25.2 (21.0-32.0) mmol/L BUN 14 (7.0-18.0) mg/dL Creatinine 0.7 (0.6-1.0) mg/dL Est Cr Clr Drug Dosing 118.88 mL/min Estimated GFR (MDRD) > 60.0 ml/min Glucose 108 H (74-106) mg/dL Calcium 8.4 L (8.5-10.1) mg/dL Phosphorus 3.3 (2.6-4.7) mg/dL Magnesium 1.5 (1.5-2.0) mg/dL Total Bilirubin 0.3 (0.2-1.0) mg/dL AST 23 (15-37) IU/L ALT 54 (14-63) IU/L Alkaline Phosphatase 65 (46-116) U/L Total Protein 6.1 L (6.4-8.2) g/dL Albumin 3.2 L (3.4-5.0) g/dL Globulin 2.9 (2.0-3.5) g/dL Albumin/Globulin Ratio 1.1 L (1.3-2.8) Result Diagrams: 07/08/17 04:47 07/08/17 04:47 *Q Meaningful Use (ADM) - VTE *Q VTE Criteria *Q: - VTE Risk Assess *Q Each Risk Factor Represents 1 Point: None Total Score 1 Point Risk Factors: 0 Each Risk Factor Represents 2 Points: None Total Score 2 Point Risk Factors: 0 Each Risk Factor Represents 3 Points: None Total Score 3 Point Risk Factors: 0 Each Risk Factor Represents 5 Points: None Total Score 5 Point Risk Factors: 0 Venous Thromboembolism Risk Factor Score *Q: 0 - Stroke *Q Stroke Criteria *Q: - AMI *Q AMI Criteria *Q: - Problem List (1) Acute appendicitis SNOMED Code(s): 30301968 ICD Code: K35.80 - UNSPECIFIED ACUTE APPENDICITIS Status: Acute Priority : High Current Visit: Yes (2) Abdominal pain SNOMED Code(s): 50065055 ICD Code: R10.9 - UNSPECIFIED ABDOMINAL PAIN Status: Acute Priority: High Current Visit: Yes Qualifiers: Abdominal location: right lower quadrant Qualified Code(s): R10.31 - Right lower quadrant pain Problem List Initiated/Reviewed/Updated: Yes Orders Last 24hrs: Active Orders 24 hr Category Date Time Status Patient Status [ADT] Routine ADT 07/08/17 00:34 Active Antiembolic Devices [RC] PER UNIT ROUTINE Care 07/08/17 00:35 Active Pollack Catheter Insertion [Insert Urinary Catheter] [OM. Care 07/08/17 07:30 Ordered PC] Q24H Oxygen Therapy [RC] PRN Care 07/08/17 00:34 Active Skin Preparation [RC] .PREOP Care 07/08/17 07:26 Active Up With Assistance [RC] ASDIRECTED Care 07/08/17 00:34 Active Urinary Catheter Assessment [RC] ASDIRECTED Care 07/08/17 07:26 Active Urinary Catheter Assessment [RC] ASDIRECTED Care 07/08/17 07:26 Active VTE/DVT Education [RC] PER UNIT ROUTINE Care 07/08/17 00:34 Active Vital Signs [RC] Q4H Care 07/08/17 00:34 Active Nothing per Oral Now Diet [DIET] Diet 07/08/17 Breakfast Active CBC WITH AUTO DIFF [HEME] AM Lab 07/09/17 05:11 Ordered CBC WITH AUTO DIFF [HEME] AM Lab 07/10/17 05:11 Ordered COMPREHENSIVE METABOLIC PN,CMP [CHEM] AM Lab 07/09/17 05:11 Ordered COMPREHENSIVE METABOLIC PN,CMP [CHEM] AM Lab 07/10/17 05:11 Ordered Lactated Ringers [Ringers, Lactated] 1,000 ml Med 07/08/17 00:45 Active IV ASDIRECTED Morphine Med 07/08/17 07:30 Active 2 mg IVPUSH Q2H PRN Ondansetron [Zofran] Med 07/08/17 00:34 Active 4 mg IVPUSH Q4H PRN Sodium Chloride 0.9% [Normal Saline] 1,000 ml Med 07/08/17 00:45 Active IV STAT Sequential Compression Device [OM.PC] Per Unit Routine Oth 07/08/17 00:34 Ordered Medication Orders Sodium Chloride (Normal Saline) 1,000 mls @ 125 mls/hr IV STAT ALMA DELIA Last Admin: 07/08/17 00:40 Dose: 125 mls/hr Sodium Chloride (Normal Saline) 1,000 mls @ 125 mls/hr IV STAT ALMA DELIA Lactated Ringer's (Ringers, Lactated) 1,000 mls @ 125 mls/hr IV ASDIRECTED ALMA DELIA Morphine Sulfate (Morphine) 2 mg IVPUSH Q2H PRN PRN Reason: Pain (severe 7-10) Ondansetron HCl (Zofran) 4 mg IVPUSH Q4H PRN PRN Reason: Nausea Assessment/Plan Comment:: This 42 year old female admitted with abdominal pain, found to have acute appendicitis. 1. Acute appendicitis: Dr Gruber, general surgery consulted. To OR today. Pain is slightly better this morning. No leukocytosis noted and afebrile since admitted. VS stable. Continue NPO and IVFs for now. VTE prophylaxis: SCDs and ambulation. Dispo: 1-2 days.
--- NOTE | 2017-07-08 11:28 | CT ---
EXAM DATE: 07/08/17 PATIENT'S AGE: 42 Patient: MARQUES HUERTA Facility: [place], [place] Site . Site : [id number] Study: CT Abdomen/Pelvis [id number]/21/2018 10:04:27 PM Ordering Physician: Doctor Clifton Final Report: INDICATION: Abdominal pain, nausea, vomiting TECHNIQUE: CT Abdomen and pelvis without i.v. contrast. Coronal and sagittal reformats were obtained. CONTRAST: None COMPARISON: None FINDINGS: Lower chest: Unremarkable. Liver: Moderate diffuse fatty infiltration of the liver is noted with mild focal fatty sparing near the gallbladder fossa. Spleen: Unremarkable. Pancreas: Unremarkable. Gallbladder: See above. Kidney: There is a 1.9 cm nodule in the left adrenal gland. Adrenal: See above. Bowel: Unremarkable. Mild enlargement of the appendiceal tip is noted measuring 10 mm, with no secondary inflammatory changes seen. Vascular: Unremarkable. Lymph: Multiple lymph nodes and ground-glass infiltration of the mesenteric root is seen. The lymph nodes measure up to 1.3 cm in maximal short axis. Peritoneum: Unremarkable. No pneumoperitoneum is seen. No significant ascites is noted. Pelvis: Both ovaries are mildly prominent appearance, likely due to the presence of multiple follicles. Soft tissue: Unremarkable. Bone: Unremarkable for age. IMPRESSIONS: 1. Multiple lymph nodes and ground-glass infiltration of the mesenteric root is seen. The lymph nodes measure up to 1.3 cm in maximal short axis. Imaging follow up is recommended to exclude a lymphoproliferative disorder or lymphoma. 2. Mild enlargement of the appendiceal tip is noted measuring 10 mm, with no secondary inflammatory changes seen. Clinical correlation and followup recommended to distinguish between a normal ectatic variant or early stage appendicitis. 3. There is a 1.9 cm nodule in the left adrenal gland. Correlation with patient` s history and laboratory data is recommended to determine the hormone activity level of this lesion. Dictated by Luis Eduardo Moseley MD @ 07/07/2017 10:11:18 PM Dictated by: Luis Eduardo Moseley MD @ 07/07/2017 22:11:23 (Electronic Signature) Report Signed by Proxy. GUY
[2017-07-08] MEDS ORDERED: ceFAZolin 1 GM Vial ONE ×2 (11:51→12:46)
[2017-07-08] MEDS ORDERED: Bupivacaine 0.5% 10 ML SDV ONE ×2 (11:51→12:47)
[2017-07-08] MEDS ORDERED: Lidocaine 2% 5 ML SDV ONE (12:56)
[2017-07-08] MEDS ORDERED: Propofol 200 MG/20 ML SDV ONE (12:57)
[2017-07-08] MEDS ORDERED: Rocuronium 10 MG/ML 10 ML Syringe ONE (12:57)
[2017-07-08] MEDS ORDERED: Midazolam 1 MG/ML 2 ML SDV ONE (12:57)
[2017-07-08] MEDS ORDERED: fentaNYL 250 MCG/5 ML SDV ONE (12:57)
[2017-07-08] MEDS ORDERED: fentaNYL 100 MCG/2 ML SDV ONE ×2 (13:05→14:10)
[2017-07-08] MEDS ORDERED: cefOXitin 1 GM Vial ONE (14:04)
[2017-07-08] MEDS ORDERED: fentaNYL 100 MCG/2 ML SDV IVPUSH PRN (14:26)
[2017-07-08] MEDS ORDERED: Ondansetron 4 MG/2 ML SDV ONE (14:39)
[2017-07-08] MEDS ORDERED: Acetaminophen 325 MG Tab PO PRN (15:06)
[2017-07-08] MEDS ORDERED: Docusate Sodium 100 MG Cap PO PRN (15:06)
[2017-07-08] MEDS ORDERED: Promethazine 25 MG/ML SDV IM PRN (15:06)
[2017-07-08] MEDS ORDERED: diphenhydrAMINE 25 MG Cap PO PRN (15:06)
--- NOTE | 2017-07-08 15:09 | PCM.OPNOTE ---
- General Post-Op/Procedure Note Date of Surgery/Procedure: 07/08/17 Operative Procedure(s): Laparoscopic appendectomy Pre Op Diagnosis: Right lower quadrant pain. Acute abdomen. Post-Op Diagnosis: Acute nonruptured appendicitis Anesthesia Technique: General ET Tube (ASA IIE) Primary Surgeon: Gato Gruber Data Warehousing Manager: Ruddy Boone Fluid Replacement, Intraop: 1,000 Condition: Fair Free Text/Narrative:: Intake & Output 07/08/17 07/08/17 07/08/17 03:59 11:59 19:59 Intake Total 1000 Output Total 150 Balance 850 Dictation [id number] CPT CODE 25410
--- NOTE | 2017-07-08 15:30 | PCM.POSTAN ---
POST ANESTHESIA ASSESSMENT - MENTAL STATUS Mental Status: Alert, Oriented - VITAL SIGNS Pulse Rate: 67 SaO2: 96 (Room Air) Resp Rate: 8 Blood Pressure: 109/65 - RESPIRATORY Respiratory Status: Respiratory Rate WNL, Airway Patent, O2 Saturation Stable - CARDIOVASCULAR CV Status: Pulse Rate WNL, Blood Pressure Stable - GASTROINTESTINAL GI Status: No Symptoms - POST OP HYDRATION Hydration Status: Adequate & Stable - OBSERVATIONS Free Text/Narrative:: Transfer back to her [facility] room
--- NOTE | 2017-07-08 16:20 | OR ---
SURGEON: Gato Gruber M.D. DATE OF PROCEDURE: 07/08/2017 OPERATION PERFORMED: Laparoscopic appendectomy. PEDIATRIC SURGEON: Dr. Boone PGY-3. ANESTHESIA: General endotracheal. ASA CLASSIFICATION: II. PREOPERATIVE DIAGNOSIS: Acute abdomen. POSTOPERATIVE DIAGNOSIS: Acute nonruptured appendicitis. INTRAOPERATIVE FLUID REPLACEMENT: 1000 mL of crystalloid. BLOOD LOSS: 5 mL. DESCRIPTION OF PROCEDURE: The patient was taken the operating room and placed on the operating table in the supine position. Time-out was called for appropriate identification of patient and procedure. Thigh-high TEDs and sequential compression boots were placed. Following satisfactory attainment of general endotracheal anesthesia, a Pollack catheter was placed in the patient's urinary bladder. The abdomen was prepped with DuraPrep solution. Sterile drapes were applied. The skin above the umbilicus was infiltrated with 0.5% Marcaine solution. The skin incision was made and deepened through the subcutaneous tissue obtaining hemostasis with the use of electrocautery. The Veress needle was introduced into the peritoneal cavity. Saline drop test was positive. Carbon dioxide pneumoperitoneum was established with the release set at 13 cm of water. Once we had a satisfactory pneumoperitoneum, a 5 mm camera and port were placed through the supraumbilical incision. The patient was now positioned with her feet down and rolled to the left. Under camera vision, 12 mm suprapubic and 5 mm left lower quadrant ports were placed. Each incision had preemptively been infiltrated with 0.5% Marcaine solution. The appendix was grasped. The tip was acutely inflamed, but not gangrenous and not ruptured. The mesoappendix was taken down with the Harmonic scalpel. The base of the appendix was doubly ligated with 0 PDS Endoloop sutures. The appendix was then amputated using the Harmonic Scalpel and placed in an Endopouch. The Endopouch was left in situ in the right lower quadrant and irrigated with 1% Ancef solution. All fluid was aspirated. The patient was again returned to a neutral position. The pelvic fluid was aspirated. Under camera vision, the 12 mm port and Endopouch containing appendix were removed and again under camera vision, the 5 mm left lower quadrant port was removed. The CO2 was allowed to evacuate to the atmosphere. The supraumbilical camera and port were then removed. The wounds were inspected for hemostasis and small bleeding sites were electrocoagulated. The supraumbilical and suprapubic incisions were closed in 2 layers approximating the subcutaneous tissue with 3-0 Vicryl, and the skin with subcuticular 4-0 Monocryl. The left lower quadrant incision was closed with subcuticular 4-0 Monocryl. All incisions were Steri- Stripped and dressed with sterile Tegaderm pads. Sponge, needle, and instrument counts were all correct. Pollack catheter was removed prior to emergence from anesthesia. Following emergence from anesthesia and extubation, the patient was taken to recovery room in stable condition. NILA DEUTSCH /[id number] GUY
--- NOTE | 2017-07-08 17:45 | PCM.SN ---
- Free Text/Narrative Note: Patient is feeling better tonight. The discomfort she was experiencing preoperatively has now been abated. She is still somewhat sleepy and does not feel that she is ready to go home. She would benefit from staying in the hospital tonight for pain management.
[2017-07-08] MEDS: Acetaminophen/oxyCODONE 325-5 MG Tab PO PRN (20:26)
[2017-07-09 06:15] LABS: CHLORIDE,CL 108 mmol/L (98-107); SODIUM,NA 140 mmol/L (136-145)
--- NOTE | 2017-07-09 07:04 | PCM48HPAN ---
Post Anesthesia Note - EVALUATION WITHIN 48HRS OF ANESTHETIC Vital Signs in Normal Range: Yes Patient Participated in Evaluation: Yes Respiratory Function Stable: Yes Airway Patent: Yes Cardiovascular Function Stable: Yes Hydration Status Stable: Yes Pain Control Satisfactory: Yes Nausea and Vomiting Control Satisfactory: Yes Mental Status Recovered: Yes Pulse Rate: 67 Resp Rate: 19 Blood Pressure: 109/65 - COMMENTS/OBSERVATIONS Free Text/Narrative:: Pt states she only took one pain pill yesterday and that she feels "so much better" this morning.
[2017-07-09] MEDS: Acetaminophen/oxyCODONE 325-5 MG Tab PO PRN (10:12)
[2017-07-09 11:38] VITALS: BP 114/68
--- NOTE | 2017-07-09 14:32 | PCM.SURGPN ---
- General Info Date of Service: 07/09/17 POD#: 1 Post-Op Diagnosis: acute appendicitis Admission Diagnosis/Problem: Acute appendicitis Functional Status: Reports: Pain Controlled - Review of Systems General: Reports: No Symptoms HEENT: Reports: No Symptoms Pulmonary: Reports: No Symptoms Cardiovascular: Reports: No Symptoms Gastrointestinal: Reports: Abdominal Pain Genitourinary: Reports: No Symptoms Musculoskeletal: Reports: No Symptoms Skin: Reports: No Symptoms Neurological: Reports: No Symptoms Psychiatric: Reports: No Symptoms Systems Review Comment:: Doing well. Tolerating diet. NO issues. REady to discharge - Patient Data Vitals - Most Recent: Last Vital Signs Temp 37.3 C 07/09/17 11:36 Pulse 68 07/09/17 07:58 Resp 18 07/09/17 11:36 BP 114/68 07/09/17 11:36 Pulse Ox 97 07/09/17 11:36 Weight - Most Recent: 90 kg I&O - Last 24 Hours: Intake & Output 07/08/17 07/09/17 07/09/17 22:59 06:59 14:59 Intake Total 3044 874 Output Total 575 2300 Balance 2469 -1426 Lab Results Last 24 Hrs: Laboratory Results - last 24 hr 07/09/17 07/09/17 Range/Units 05:33 05:33 WBC 5.34 (4.0-11.0) K/uL RBC 4.39 (4.30-5.90) M/uL Hgb 11.8 L (12.0-16.0) g/dL Hct 36.5 (36.0-46.0) % MCV 83.1 (80.0-98.0) fL MCH 26.9 L (27.0-32.0) pg MCHC 32.3 (31.0-37.0) g/dL RDW Std Deviation 42.9 (28.0-62.0) fl RDW Coeff of Jenni 14 (11.0-15.0) % Plt Count 167 (150-400) K/uL MPV 10.70 (7.40-12.00) fL Neut % (Auto) 55.2 (48.0-80.0) % Lymph % (Auto) 35.6 (16.0-40.0) % [place] % (Auto) 7.3 (0.0-15.0) % Eos % (Auto) 1.5 (0.0-7.0) % Baso % (Auto) 0.4 (0.0-1.5) % Neut # (Auto) 3.0 (1.4-5.7) K/uL Lymph # (Auto) 1.9 (0.6-2.4) K/uL [place] # (Auto) 0.4 (0.0-0.8) K/uL Eos # (Auto) 0.1 (0.0-0.7) K/uL Baso # (Auto) 0.0 (0.0-0.1) K/uL Nucleated RBC % 0.0 /100WBC Nucleated RBCs # 0 K/uL Sodium 140 (136-145) mmol/L Potassium 3.8 (3.5-5.1) mmol/L Chloride 108 H (98-107) mmol/L Carbon Dioxide 25.6 (21.0-32.0) mmol/L BUN 12 (7.0-18.0) mg/dL Creatinine 0.8 (0.6-1.0) mg/dL Est Cr Clr Drug Dosing 104.02 mL/min Estimated GFR (MDRD) > 60.0 ml/min Glucose 106 (74-106) mg/dL Calcium 8.7 (8.5-10.1) mg/dL Total Bilirubin 0.2 (0.2-1.0) mg/dL AST 22 (15-37) IU/L ALT 51 (14-63) IU/L Alkaline Phosphatase 62 (46-116) U/L Total Protein 5.7 L (6.4-8.2) g/dL Albumin 3.0 L (3.4-5.0) g/dL Globulin 2.7 (2.0-3.5) g/dL Albumin/Globulin Ratio 1.1 L (1.3-2.8) Med Orders - Current: Current Medications Acetaminophen (Tylenol) 650 mg PO Q6H PRN PRN Reason: Pain (mild 1-3) Diphenhydramine HCl (Benadryl) 25 mg PO Q4H PRN PRN Reason: Itching Docusate Sodium (Colace) 100 mg PO BID PRN PRN Reason: Constipation Last Admin: 07/09/17 10:16 Dose: 100 mg Lactated Ringer's (Ringers, Lactated) 1,000 mls @ 125 mls/hr IV ASDIRECTED [facility] Last Admin: 07/08/17 09:31 Dose: 125 mls/hr Morphine Sulfate (Morphine) 2 mg IVPUSH Q1H PRN PRN Reason: Pain (severe 7-10) Ondansetron HCl (Zofran) 4 mg IVPUSH Q4H PRN PRN Reason: Nausea Oxycodone/Acetaminophen (Percocet 325-5 Mg) 2 tab PO Q4H PRN PRN Reason: Pain (moderate 4-6) Last Admin: 07/09/17 10:12 Dose: 2 tab Promethazine HCl (Phenergan) 25 mg IM Q6H PRN PRN Reason: Nausea Discontinued Medications Bupivacaine HCl (Sensorcaine-Mpf 0.5%) Confirm Administered Dose 10 ml .ROUTE .STK-MED ONE Stop: 07/08/17 11:52 Bupivacaine HCl (Sensorcaine-Mpf 0.5%) Confirm Administered Dose 30 ml .ROUTE .STK-MED ONE Stop: 07/08/17 12:48 Cefazolin Sodium (Ancef) Confirm Administered Dose 1 gm .ROUTE .STK-MED ONE Stop: 07/08/17 11:52 Cefazolin Sodium (Ancef) Confirm Administered Dose 1 gm .ROUTE .STK-MED ONE Stop: 07/08/17 12:47 Cefoxitin Sodium (Mefoxin) Confirm Administered Dose 1 gm .ROUTE .STK-MED ONE Stop: 07/08/17 14:05 Dicyclomine HCl (Bentyl) 10 mg PO ONETIME ONE Stop: 07/07/17 21:31 Last Admin: 07/07/17 21:57 Dose: 10 mg Fentanyl (Sublimaze) Confirm Administered Dose 250 mcg .ROUTE .STK-MED ONE Stop: 07/08/17 12:58 Fentanyl (Sublimaze) Confirm Administered Dose 100 mcg .ROUTE .STK-MED ONE Stop: 07/08/17 13:06 Fentanyl (Sublimaze) Confirm Administered Dose 100 mcg .ROUTE .STK-MED ONE Stop: 07/08/17 14:11 Fentanyl (Sublimaze) 50 mcg IVPUSH Q5M PRN PRN Reason: Pain (severe 7-10) Stop: 07/09/17 14:26 Sodium Chloride (Normal Saline) 1,000 mls @ 999 mls/hr IV STAT ONE Stop: 07/07/17 21:41 Last Admin: 07/07/17 20:51 Dose: 999 mls/hr Sodium Chloride (Normal Saline) 1,000 mls @ 125 mls/hr IV STAT [facility] Last Admin: 07/08/17 00:40 Dose: 125 mls/hr Sodium Chloride (Normal Saline) 1,000 mls @ 125 mls/hr IV STAT [facility] Cefoxitin Sodium 2 gm/ Premix 50 mls @ 100 mls/hr IV ONETIME ONE Stop: 07/08/17 07:55 Last Admin: 07/08/17 08:44 Dose: 100 mls/hr Iopamidol (Isovue Multipack-370 (76%)) 100 ml IVPUSH ONETIME STA Stop: 07/07/17 21:10 Last Admin: 07/07/17 21:11 Dose: 100 ml Ketorolac Tromethamine (Toradol) 30 mg IVPUSH ONETIME ONE Stop: 07/07/17 21:02 Last Admin: 07/07/17 21:08 Dose: 30 mg Lidocaine (Xylocaine-Mpf 2%) Confirm Administered Dose 10 ml .ROUTE .STK-MED ONE Stop: 07/08/17 12:57 Midazolam HCl (Versed 1 Mg/Ml) Confirm Administered Dose 2 mg .ROUTE .STK-MED ONE Stop: 07/08/17 12:58 Morphine Sulfate (Morphine) 2 mg IVPUSH Q2H PRN PRN Reason: Pain (severe 7-10) Stop: 07/09/17 00:35 Last Admin: 07/08/17 02:01 Dose: 2 mg Morphine Sulfate (Morphine) 2 mg IVPUSH Q2H PRN PRN Reason: Pain (severe 7-10) Ondansetron HCl (Zofran) 4 mg IVPUSH ONETIME ONE Stop: 07/07/17 21:02 Last Admin: 07/07/17 21:09 Dose: 4 mg Ondansetron HCl (Zofran) Confirm Administered Dose 4 mg .ROUTE .STK-MED ONE Stop: 07/08/17 14:40 Propofol (Diprivan 20 Ml) Confirm Administered Dose 400 mg .ROUTE .STK-MED ONE Stop: 07/08/17 12:58 Rocuronium [place] (Zemuron) Confirm Administered Dose 100 mg .ROUTE .STK-MED ONE Stop: 07/08/17 12:58 - Exam Wound/Incisions: Dressing Dry and Intact (dressings ), Drainage (mild serosanguinous) General: Alert, Oriented GI/Abdominal Exam: Soft, No Distention (appropriately tender) - Problem List & Annotations (1) Acute appendicitis SNOMED Code(s): 39462734 Code(s): K35.80 - UNSPECIFIED ACUTE APPENDICITIS Status: Resolved Priority: High Current Visit: Yes Qualifiers: Acute appendicitis type: with localized peritonitis Qualified Code(s): K35.3 - Acute appendicitis with localized peritonitis - Problem List Review Problem List Initiated/Reviewed/Updated: Yes - My Orders Last 24 Hours: Active Orders 24 hr Category Date Time Status Antiembolic Devices [RC] .Routine Care 07/08/17 15:09 Active Oxygen Therapy [RC] PRN Care 07/08/17 15:03 Active RT Incentive Spirometry [RC] ASDIRECTED Care 07/08/17 15:03 Active Ready for Discharge [RC] PER UNIT ROUTINE Care 07/09/17 13:46 Active Up ad Diamond [RC] ASDIRECTED Care 07/08/17 15:03 Active VTE/DVT Education [RC] PER UNIT ROUTINE Care 07/08/17 15:09 Active Vital Signs [RC] PER UNIT ROUTINE Care 07/08/17 15:03 Active Regular Diet [DIET] Diet 07/09/17 Breakfast Active CBC WITH AUTO DIFF [HEME] AM Lab 07/10/17 05:11 Ordered COMPREHENSIVE METABOLIC PN,CMP [CHEM] AM Lab 07/10/17 05:11 Ordered Acetaminophen [Tylenol] Med 07/08/17 15:06 Active 650 mg PO Q6H PRN Acetaminophen/oxyCODONE [Percocet 325-5 MG] Med 07/08/17 15:06 Active 2 tab PO Q4H PRN Docusate Sodium [Colace] Med 07/08/17 15:06 Active 100 mg PO BID PRN Morphine Med 07/08/17 15:11 Active 2 mg IVPUSH Q1H PRN Promethazine [Phenergan] Med 07/08/17 15:06 Active 25 mg IM Q6H PRN diphenhydrAMINE [Benadryl] Med 07/08/17 15:06 Active 25 mg PO Q4H PRN DVT/VTE Prophylaxis Reflex [OM.PC] Routine Oth 07/08/17 15:06 Ordered Peripheral IV Discontinue [OM.PC] Routine Oth 07/08/17 15:06 Ordered Medication Orders Acetaminophen (Tylenol) 650 mg PO Q6H PRN PRN Reason: Pain (mild 1-3) Diphenhydramine HCl (Benadryl) 25 mg PO Q4H PRN PRN Reason: Itching Docusate Sodium (Colace) 100 mg PO BID PRN PRN Reason: Constipation Last Admin: 07/09/17 10:16 Dose: 100 mg Lactated Ringer's (Ringers, Lactated) 1,000 mls @ 125 mls/hr IV ASDIRECTED [facility] Last Admin: 07/08/17 09:31 Dose: 125 mls/hr Morphine Sulfate (Morphine) 2 mg IVPUSH Q1H PRN PRN Reason: Pain (severe 7-10) Ondansetron HCl (Zofran) 4 mg IVPUSH Q4H PRN PRN Reason: Nausea Oxycodone/Acetaminophen (Percocet 325-5 Mg) 2 tab PO Q4H PRN PRN Reason: Pain (moderate 4-6) Last Admin: 07/09/17 10:12 Dose: 2 tab Admin: 07/08/17 20:26 Dose: 2 tab Promethazine HCl (Phenergan) 25 mg IM Q6H PRN PRN Reason: Nausea - Assessment Assessment (Free Text/Narrative):: POD #1 s/p lap appendectomy. Doing well. - Plan Plan (Free Text/Narrative):: Discharge home today. Follow up with Dr. Gruber in 7-10 days. Discharge instructions discussed.
== END 2017-07-09 14:35 | disposition home or self-care (01) ==
LOC: MW.ED 20:33 → MW.MS 07-08 00:32
PROVIDERS: ADMIT Family Medicine; ATTEND Family Medicine
DX: D12.1 Benign neoplasm of appendix (principal); K21.9 Gastro-esophageal reflux disease without esophagitis; F32.9 Major depressive disorder, single episode, unspecified; Z88.1 Allergy status to other antibiotic agents; Z88.2 Allergy status to sulfonamides; Z79.899 Other long term (current) drug therapy; Z87.891 Personal history of nicotine dependence
CPT/HCPCS: 36415; 44970; 74177; 80053; 81001; 81025; 82150; 83690; 83735; 84100; 85025; 86677; 88305; 96361; 96374; 96375; 99285; A9270; J0690; J0694; J1885; J2250; J2270; J2405; J3010; J7040; J7120; Q9967; 00840; 99283; J2704

== ENCOUNTER 2017-12-10 11:40 | Day surgery (SDC) | payer MEDICAID ==
[~2017-12-10 11:40] MED LIST: Lidocaine 2% 5 ML SDV ONE; Propofol 200 MG/20 ML SDV ONE
--- NOTE | 2017-12-10 12:40 | PCM.PREANE ---
Preanesthetic Assessment - Procedure Proposed Procedure: EGD and Colonoscopy - Anesthesia/Transfusion/Family Hx Anesthesia History: Prior Anesthesia Without Reaction Other Type of Anesthesia Reaction Comment: Sore throat for 2 days after lap appy 5 months ago Family History of Anesthesia Reaction: No Transfusion History: No Prior Transfusion(s) Intubation History: Unknown - Review of Systems General: No Symptoms Pulmonary: No Symptoms Cardiovascular: No Symptoms Gastrointestinal: No Symptoms Neurological: No Symptoms Other: Reports: None - Physical Assessment NPO Status Date: 12/09/17 NPO Status Time: 23:00 Height: 5 ft 11 in Weight: 180 lb ASA Class: 1 Mental Status: Alert & Oriented x3 Airway Class: Mallampati = 1 Dentition: Reports: Normal Dentition Thyro-Mental Finger Breadths: 3 Mouth Opening Finger Breadths: 3 ROM/Head Extension: Full Lungs: Clear to Auscultation, Normal Respiratory Effort Cardiovascular: Regular Rate, Regular Rhythm, No Murmurs - Allergies Allergies/Adverse Reactions: Allergies Allergy/AdvReac Type Severity Reaction Status Date / Time clarithromycin [From Biaxin] Allergy Hives Verified 07/07/17 20:47 sulfamethoxazole Allergy Hives Verified 07/07/17 20:47 [From Bactrim] trimethoprim [From Bactrim] Allergy Hives Verified 07/07/17 20:47 - Blood Blood Available: No Product(s) Available: None - Anesthesia Plan Pre-Op Medication Ordered: None - Acknowledgements Anesthesia Type Planned: MAC Pt an Appropriate Candidate for the Planned Anesthesia: Yes Alternatives and Risks of Anesthesia Discussed w Pt/Guardian: Yes Pt/Guardian Understands and Agrees with Anesthesia Plan: Yes PreAnesthesia Questionnaire HEENT History: Reports: Other (See Below) Other HEENT History: wears glasses, hx of fx nose Cardiovascular History: Reports: None Respiratory History: Gastrointestinal History: Reports: GERD Genitourinary History: Reports: Renal Calculus 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: Reports: 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, Fibroids, Musculoskeletal History: Reports: Fracture Other Musculoskeletal History: hx fx arm, ankle and nose Neurological History: Reports: Migraines Other Neuro History: migraines in the past Psychiatric History: Reports: Anxiety, Bipolar, Depression Endocrine/Metabolic History: Reports: Diabetes, Gestational Other Endocrine/Metabolic History: hx gestation diabetes with first Hematologic History: Reports: None Immunologic History: Reports: None Oncologic (Cancer) History: Reports: None Dermatologic History: Reports: None - Infectious Disease History Infectious Disease History: Reports: None - Past Surgical History Head Surgeries/Procedures: Reports: None GI Surgical History: Reports: Appendectomy Female Surgical History: Reports: Breast Biopsy, Cystectomy Other Female Surgeries/Procedures: hx laparoscopy with ovarian cystectomy x2 Oncologic Surgical History: Reports: Biopsy of Breast - SUBSTANCE USE Smoking Status *Q: Former Smoker Tobacco Use Within Last Twelve Months: No Recreational Drug Use History: No - HOME MEDS Home Medications: Home Meds ARIPiprazole [Abilify] 10 mg PO DAILY 12/07/17 [History] Cyanocobalamin (Vitamin B12) [Vitamin B12] 500 mcg PO DAILY 12/07/17 [History] Famotidine [Pepcid] 20 mg PO DAILY 12/07/17 [History] Fish Oil/Borger-3 Fatty Acids [Fish Oil 1,000 MG] 1,000 mg PO DAILY 12/07/17 [ History] Multivitamin [Multivitamins] 1 tab PO DAILY 12/07/17 [History] Multivits Min/Iron/FA/Herb#186 [Hair, Skin and Nails Caplet] 1 tab PO DAILY [History] Omeprazole 20 mg PO ASDIRECTED 12/07/17 [History] cloNIDine [Catapres] 0.1 mg PO ASDIRECTED PRN 12/07/17 [History] - CURRENT (IN HOUSE) MEDS Current Meds: Current Medications Lactated Ringer's (Ringers, Lactated) 1,000 mls @ 125 mls/hr IV ASDIRECTED [facility] Discontinued Medications Lidocaine (Xylocaine-Mpf 2%) Confirm Administered Dose 5 ml .ROUTE .STK-MED ONE Stop: 12/10/17 09:49 Propofol (Diprivan 20 Ml) Confirm Administered Dose 400 mg .ROUTE .STK-MED ONE Stop: 12/10/17 09:49
[2017-12-10] MEDS ORDERED: Propofol 200 MG/20 ML SDV ONE ×2 (14:24→14:49)
[2017-12-10] MEDS ORDERED: Sodium Chloride 0.9% 2.5 ML Syringe FLUSH PRN (15:02)
[2017-12-10] MEDS ORDERED: Ondansetron 4 MG/2 ML SDV IVPUSH PRN (15:02)
[2017-12-10] MEDS ORDERED: Sodium Chloride 0.9% 10 ML Syringe FLUSH PRN (15:02)
--- NOTE | 2017-12-10 15:07 | PCM.POSTAN ---
POST ANESTHESIA ASSESSMENT - MENTAL STATUS Mental Status: Alert - RESPIRATORY Respiratory Status: Respiratory Rate WNL - CARDIOVASCULAR CV Status: Pulse Rate WNL - GASTROINTESTINAL GI Status: No Symptoms - POST OP HYDRATION Hydration Status: Adequate & Stable
--- NOTE | 2017-12-10 15:08 | PCM.OPNOTE ---
- General Post-Op/Procedure Note Date of Surgery/Procedure: 12/10/17 Operative Procedure(s): Esophagogastroduodenoscopy with gastric biopsies. Colonoscopy with cecal biopsies. Pre Op Diagnosis: Progressive epigastric pain. Change in bowel habits. History of appendiceal mucinous adenoma. Post-Op Diagnosis: Gastritis. Hiatal hernia. Normal appearing cecum. Anesthesia Technique: MAC (ASA I) Primary Surgeon: Gato Gruber Signal Tower Operator: Abelino Whipple Condition: Good Free Text/Narrative:: DICTATION [id number] CPT CODE [id number]
--- NOTE | 2017-12-10 15:16 | PCM48HPAN ---
Post Anesthesia Note - EVALUATION WITHIN 48HRS OF ANESTHETIC Vital Signs in Normal Range: Yes Patient Participated in Evaluation: Yes Respiratory Function Stable: Yes Airway Patent: Yes Cardiovascular Function Stable: Yes Hydration Status Stable: Yes Pain Control Satisfactory: Yes Nausea and Vomiting Control Satisfactory: Yes Mental Status Recovered: Yes Resp Rate: 15
[2017-12-10 15:26] VITALS: BP 102/58
--- NOTE | 2017-12-10 15:55 | PCM48HPAN ---
Post Anesthesia Note - EVALUATION WITHIN 48HRS OF ANESTHETIC Vital Signs in Normal Range: Yes Patient Participated in Evaluation: Yes Respiratory Function Stable: Yes Airway Patent: Yes Cardiovascular Function Stable: Yes Hydration Status Stable: Yes Pain Control Satisfactory: Yes Mental Status Recovered: Yes Resp Rate: 14
--- NOTE | 2017-12-10 22:53 | OR ---
SURGEON: Gato Gruber M.D. DATE OF PROCEDURE: 12/10/2017 OPERATION PERFORMED: Esophagogastroduodenoscopy with gastric biopsy. INCLINED RAILWAY OPERATOR: Dr. Brandt, PGY2. ANESTHESIA: MAC. ASA CLASSIFICATION: 1. PREOPERATIVE DIAGNOSIS: Persistent epigastric pain. POSTOPERATIVE DIAGNOSES: 1. Hiatal hernia. 2. Gastritis. DESCRIPTION OF PROCEDURE: The patient was taken to the endoscopy room and positioned on the endoscopy table in the left lateral decubitus position. Time-out was called for appropriate identification of the patient and procedure. Monitored anesthesia care was provided. The bite block was placed between the patient's teeth. The gastroscope was inserted into the oropharynx and advanced without difficulty through the esophagus, stomach, into the duodenum where examination was carried out in a retrograde fashion. The duodenum shows no acute inflammatory changes or ulcerations. The stomach does show [id number] gastritis. Antral biopsies were obtained to look for the presence of Helicobacter pylori. The gastroscope was then retroflexed to visualize the proximal stomach. The patient does have a moderate-sized hiatal hernia. The gastroscope was then straightened and slowly withdrawn. The stomach was aspirated as the scope was withdrawn. The hiatal hernia is easy to see and is of moderate-sized. The GE junction was well defined and shows no acute inflammatory changes or ulcerations. The esophagus itself demonstrates good contractility. No mid or proximal lesions were identified. The vocal cords were visualized as the scope was withdrawn and noted to move symmetrically. The gastroscope was then removed with the patient having tolerated this portion of the procedure well. Following colonoscopy, she was taken to recovery room in stable condition. NILA DEUTSCH /[id number]
--- NOTE | 2017-12-10 22:56 | OR ---
SURGEON: Gato Gruber M.D. DATE OF PROCEDURE: 12/10/2017 OPERATION PERFORMED: Colonoscopy with cecal biopsy. SOUP PERSON: Dr. Brandt, PGY2. ANESTHESIA: MAC. ASA CLASSIFICATION: 1. PREOPERATIVE DIAGNOSES: 1. Change in bowel habits. 2. History of appendiceal mucinous adenoma. DESCRIPTION OF PROCEDURE: With the patient having completed esophagogastroduodenoscopy, she was maintained in the left lateral decubitus position. The colonoscope was inserted into the rectum and advanced with minimal difficulty to the cecum. The appendiceal orifice was easily visualized. The area around the appendiceal orifice was biopsied, although, there was no obvious mucosal abnormality. The colonoscope was then retroflexed to visualize the ascending colon from below. Again, no tumors or polyps were seen. The colonoscope was then straightened and slowly withdrawn. The cecum, ascending colon, hepatic flexure, transverse colon, splenic flexure, descending colon, sigmoid colon, and rectum were very well visualized. No tumors, polyps, diverticula, or angiodysplastic changes were noted. Once the colonoscope was withdrawn to the rectum, it was retroflexed to visualize the anal orifice from above. No tumors or polyps were seen and there were no acute hemorrhoidal changes. The colonoscope was then straightened. The rectum aspirated, and the colonoscope removed. The patient tolerated the procedure well and was taken to recovery room in stable condition. NILA DEUTSCH /[id number]
[2017-12-11] MEDS ORDERED: Lactated Ringers 1,000 ML IV SCH (08:00)
== END 2017-12-10 15:35 | disposition home or self-care (01) ==
LOC: MW.SDS 11:40
PROVIDERS: ATTEND Surgery
DX: R10.13 Epigastric pain (principal); K29.70 Gastritis, unspecified, without bleeding; K44.9 Diaphragmatic hernia without obstruction or gangrene; R19.4 Change in bowel habit; F41.9 Anxiety disorder, unspecified; F32.9 Major depressive disorder, single episode, unspecified; K21.9 Gastro-esophageal reflux disease without esophagitis; Z85.038 Personal history of other malignant neoplasm of large intestine; Z87.891 Personal history of nicotine dependence; Z79.899 Other long term (current) drug therapy; Z88.1 Allergy status to other antibiotic agents; Z88.2 Allergy status to sulfonamides
CPT/HCPCS: 43239; 45380; 81025; J2704; 00813; 88305; 88312

== ENCOUNTER 2019-09-07 07:56 | Day surgery (SDC) | payer MEDICAID ==
[2019-09-06 11:13] LABS: BLOOD UREA NITROGEN,BUN 14 mg/dL (7.0-18.0); CHLORIDE,CL 104 mmol/L (98-107); GLUCOSE RANDOM 139 mg/dL (74-106); POTASSIUM,K 4.2 mmol/L (3.5-5.1); SODIUM,NA 139 mmol/L (136-145)
[~2019-09-07 07:56] MED LIST changes: +Fluorescein 5 ML Vial ONE; +Glycopyrrolate 0.2 MG/ML SDV ONE; +Ketorolac 30 MG/ML SDV ONE; +Midazolam 1 MG/ML 2 ML SDV ONE; +Octyl 2-Cyanoacrylate 1 Tube ONE; +Ondansetron 4 MG/2 ML SDV ONE; +Sodium Chloride 0.9% 10 ML SDV IV PRN; +Sodium Chloride 0.9% 10 ML Syringe FLUSH PRN; +Sodium Chloride 0.9% 2.5 ML Syringe FLUSH PRN; +Sodium Chloride 0.9% 20 ML ONE; +Sugammadex Sodium 200 MG/2 ML VIAL ONE; +ceFAZolin 1 GM Vial ONE; +ceFAZolin 2 GM in Premix Bag 1 BAG IV ONE; +fentaNYL 250 MCG/5 ML SDV ONE
[2019-09-07] MEDS: Lactated Ringers 1,000 ML IV SCH ×2 (08:48→20:19)
[2019-09-07] MEDS ORDERED: Acetaminophen 1,000 MG in Premix Bag 1 BAG IV PRN (08:50)
[2019-09-07] MEDS ORDERED: fentaNYL 100 MCG/2 ML SDV IVPUSH PRN (08:50)
--- NOTE | 2019-09-07 08:50 | PCM.PREANE ---
Preanesthetic Assessment - Anesthesia/Transfusion/Family Hx Anesthesia History: Prior Anesthesia Without Reaction Other Type of Anesthesia Reaction Comment: Sore throat for 2 days after lap appy 5 months ago Family History of Anesthesia Reaction: No Transfusion History: No Prior Transfusion(s) Intubation History: Unknown - Review of Systems General: No Symptoms Pulmonary: No Symptoms Cardiovascular: No Symptoms Gastrointestinal: No Symptoms Neurological: No Symptoms Other: Reports: None - Physical Assessment Height: 5 ft 11 in Weight: 90.265 kg ASA Class: 2 Mental Status: Alert & Oriented x3 Airway Class: Mallampati = 1 Dentition: Reports: Normal Dentition Thyro-Mental Finger Breadths: 3 Mouth Opening Finger Breadths: 3 ROM/Head Extension: Full Lungs: Clear to Auscultation, Normal Respiratory Effort Cardiovascular: Regular Rate, Regular Rhythm - Lab Values: Laboratory Last Values WBC 6.54 K/uL (4.0-11.0) 09/06/19 10:32 RBC 5.03 M/uL (4.30-5.90) 09/06/19 10:32 Hgb 13.5 g/dL (12.0-16.0) 09/06/19 10:32 Hct 42.0 % (36.0-46.0) 09/06/19 10:32 MCV 83.5 fL (80.0-98.0) 09/06/19 10:32 MCH 26.8 pg (27.0-32.0) L 09/06/19 10:32 MCHC 32.1 g/dL (31.0-37.0) 09/06/19 10:32 RDW Std Deviation 43.9 fl (28.0-62.0) 09/06/19 10:32 RDW Coeff of Jenni 14 % (11.0-15.0) 09/06/19 10:32 Plt Count 236 K/uL (150-400) 09/06/19 10:32 MPV 10.80 fL (7.40-12.00) 09/06/19 10:32 Nucleated RBC % 0.0 /100WBC 09/06/19 10:32 Nucleated RBCs # 0 K/uL 09/06/19 10:32 Sodium 139 mmol/L (136-145) 09/06/19 10:32 Potassium 4.2 mmol/L (3.5-5.1) 09/06/19 10:32 Chloride 104 mmol/L (98-107) 09/06/19 10:32 Carbon Dioxide 27.0 mmol/L (21.0-32.0) 09/06/19 10:32 BUN 14 mg/dL (7.0-18.0) 09/06/19 10:32 Creatinine 0.9 mg/dL (0.6-1.0) 09/06/19 10:32 Est Cr Clr Drug Dosing 91.01 mL/min 09/06/19 10:32 Estimated GFR (MDRD) > 60.0 ml/min 09/06/19 10:32 Glucose 139 mg/dL (74-106) H 09/06/19 10:32 Calcium 8.7 mg/dL (8.5-10.1) 09/06/19 10:32 HCG, Qual NEGATIVE (NEG) 09/06/19 10:32 Blood Type A POSITIVE 09/06/19 10:32 Antibody Screen NEGATIVE 09/06/19 10:32 - Allergies Allergies/Adverse Reactions: Allergies Allergy/AdvReac Type Severity Reaction Status Date / Time clarithromycin [From Biaxin] Allergy Hives Verified 09/04/19 11:22 sulfamethoxazole Allergy Hives Verified 09/04/19 11:22 [From Bactrim] trimethoprim [From Bactrim] Allergy Hives Verified 09/04/19 11:22 - Blood Blood Available: No - Anesthesia Plan Pre-Op Medication Ordered: None - Acknowledgements Anesthesia Type Planned: General Anesthesia Pt an Appropriate Candidate for the Planned Anesthesia: Yes Alternatives and Risks of Anesthesia Discussed w Pt/Guardian: Yes Pt/Guardian Understands and Agrees with Anesthesia Plan: Yes PreAnesthesia Questionnaire HEENT History: Reports: Other (See Below) Other HEENT History: wears glasses, hx of fx nose Cardiovascular History: Reports: None Respiratory History: Reports: None Gastrointestinal History: Reports: GERD, Hiatal Hernia Genitourinary History: Reports: Renal Calculus 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: 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, Fibroids, Musculoskeletal History: Reports: Fracture Other Musculoskeletal History: hx fx arm, ankle and nose Neurological History: Reports: Migraines Other Neuro History: migraines in the past Psychiatric History: Reports: Anxiety, Bipolar, Depression, Suicide Attempt Endocrine/Metabolic History: Reports: Diabetes, Gestational Other Endocrine/Metabolic History: hx gestation diabetes with first Hematologic History: Reports: None Immunologic History: Reports: None Oncologic (Cancer) History: Reports: None Dermatologic History: Reports: None - Infectious Disease History Infectious Disease History: Reports: None - Past Surgical History Head Surgeries/Procedures: Reports: None HEENT Surgical History: Reports: None Cardiovascular Surgical History: Reports: None Respiratory Surgical History: Reports: None GI Surgical History: Reports: Appendectomy, Colonoscopy, EGD Female Surgical History: Reports: Breast Biopsy, Other (See Below) Other Female Surgeries/Procedures: hx laparoscopy with ovarian cystectomy x2 Endocrine Surgical History: Reports: None Neurological Surgical History: Reports: None Musculoskeletal Surgical History: Reports: None Oncologic Surgical History: Reports: Biopsy of Breast Dermatological Surgical History: Reports: None - SUBSTANCE USE Smoking Status *Q: Former Smoker (quit 5 years ago) Tobacco Use Within Last Twelve Months: No - HOME MEDS Home Medications: Home Meds ARIPiprazole [Abilify] 5 mg PO DAILY 12/07/17 [History] Fish Oil/Merna-3 Fatty Acids [Fish Oil 1,000 MG] 1,000 mg PO DAILY 12/07/17 [ History] Multivitamin [Multivitamins] 1 tab PO DAILY 12/07/17 [History] Omeprazole 1 - 2 mg PO ASDIRECTED PRN 12/07/17 [History] cloNIDine [Catapres] 0.1 mg PO ASDIRECTED PRN 12/07/17 [History] Benztropine Mesylate 1 tab PO BID 09/04/19 [History] buPROPion [Wellbutrin] 100 mg PO DAILY 09/04/19 [History] - CURRENT (IN HOUSE) MEDS Current Meds: Current Medications Lactated Ringer's (Ringers, Lactated) 1,000 mls @ 125 mls/hr IV ASDIRECTED [facility] Last Admin: 09/07/19 08:48 Dose: 125 mls/hr Sodium Chloride (Saline Flush) 10 ml FLUSH ASDIRECTED PRN PRN Reason: Keep Vein Open Sodium Chloride (Saline Flush) 2.5 ml FLUSH ASDIRECTED PRN PRN Reason: Keep Vein Open Sodium Chloride (Normal Saline) 10 ml IV ASDIRECTED PRN PRN Reason: IV Use Discontinued Medications Cefazolin Sodium (Ancef) Confirm Administered Dose 2 gm .ROUTE .STK-MED ONE Stop: 05/21/20 07:37 Fentanyl (Sublimaze) Confirm Administered Dose 250 mcg .ROUTE .STK-MED ONE Stop: 09/07/19 07:05 Fluorescein Sodium (Ak-Fluor) Confirm Administered Dose 5 ml .ROUTE .STK-MED ONE Stop: 09/07/19 07:27 Glycopyrrolate (Robinul) Confirm Administered Dose 0.2 mg .ROUTE .STK-MED ONE Stop: 09/07/19 07:05 Cefazolin Sodium/Dextrose 2 gm (/ Premix) 50 mls @ 100 mls/hr IV ONETIME ONE Stop: 09/06/19 09:14 Sodium Chloride (Normal Saline) Confirm Administered Dose 20 mls @ as directed .ROUTE .STK-MED ONE Stop: 09/07/19 07:37 Ketorolac Tromethamine (Toradol) Confirm Administered Dose 30 mg .ROUTE .STK- MED ONE Stop: 09/07/19 07:05 Lidocaine (Xylocaine-Mpf 2%) Confirm Administered Dose 5 ml .ROUTE .ST-MED ONE Stop: 09/07/19 07:05 Midazolam HCl (Versed 1 Mg/Ml) Confirm Administered Dose 2 mg .ROUTE .STK-MED ONE Stop: 09/07/19 07:05 Octyl Cyanoacrylate (Dermabond Advance) Confirm Administered Dose 1 applic .ROUTE .ST-MED ONE Stop: 09/07/19 07:27 Ondansetron HCl (Zofran) Confirm Administered Dose 4 mg .ROUTE .STK-MED ONE Stop: 09/07/19 07:05 Propofol (Diprivan 20 Ml) Confirm Administered Dose 200 mg .ROUTE .STK-MED ONE Stop: 09/07/19 07:05 Sugammadex Sodium (Bridion) Confirm Administered Dose 200 mg .ROUTE .STK-MED ONE Stop: 09/07/19 07:02
[2019-09-07] MEDS: Midazolam 1 MG/ML 2 ML SDV ONE ×2 (09:35→09:55)
[2019-09-07] MEDS: Midazolam 1 MG/ML 2 ML SDV IVPUSH ONE ×2 (10:46→11:00)
[2019-09-07] MEDS ORDERED: HYDROmorphone 2 MG/ML Syringe ONE ×2 (12:22→13:13)
[2019-09-07] MEDS ORDERED: Ketorolac 30 MG/ML SDV IVPUSH PRN (14:00)
[2019-09-07] MEDS ORDERED: Promethazine 25 MG/ML SDV IM PRN (14:00)
[2019-09-07] MEDS ORDERED: Ketorolac 30 MG/ML SDV IVPUSH ONE (14:00)
[2019-09-07] MEDS ORDERED: Morphine 4 MG/ML Syringe IVPUSH PRN (14:00)
[2019-09-07] MEDS ORDERED: Acetaminophen/oxyCODONE 325-5 MG Tab PO PRN ×2 (14:00)
[2019-09-07] MEDS ORDERED: Ondansetron 4 MG/2 ML SDV IVPUSH PRN (14:00)
--- NOTE | 2019-09-07 14:03 | PCM.OPNOTE ---
- General Post-Op/Procedure Note Date of Surgery/Procedure: 09/07/19 Operative Procedure(s): TLH,BSO and Cystoscopy. Pre Op Diagnosis: Endometreosis Post-Op Diagnosis: Same Primary Surgeon: Adalberto Campbell EBL in mLs: 150 Complications: None Condition: Good
--- NOTE | 2019-09-07 15:15 | PCM.POSTAN ---
POST ANESTHESIA ASSESSMENT - MENTAL STATUS Mental Status: Alert, Oriented - VITAL SIGNS Vital Signs: Last Vital Signs Temp 36.2 C 09/07/19 14:01 Pulse 75 09/07/19 15:13 Resp 15 09/07/19 15:13 BP 104/65 09/07/19 15:13 Pulse Ox 98 09/07/19 15:13 - RESPIRATORY Respiratory Status: Respiratory Rate WNL, Airway Patent, O2 Saturation Stable - CARDIOVASCULAR CV Status: Pulse Rate WNL, Blood Pressure Stable - GASTROINTESTINAL GI Status: No Symptoms - PAIN Pain Score: 0 - POST OP HYDRATION Hydration Status: Adequate & Stable - OBSERVATIONS Free Text/Narrative:: No anesthesia problems
[2019-09-08] MEDS: Lactated Ringers 1,000 ML IV SCH (03:40)
[2019-09-08 06:12] LABS: BLOOD UREA NITROGEN,BUN 9 mg/dL (7.0-18.0); CARBON DIOXIDE,CO2 26.1 mmol/L (21.0-32.0); CHLORIDE,CL 108 mmol/L (98-107); GLUCOSE RANDOM 175 mg/dL (74-106); POTASSIUM,K 3.8 mmol/L (3.5-5.1); SODIUM,NA 140 mmol/L (136-145)
--- NOTE | 2019-09-08 07:13 | PCM48HPAN ---
Post Anesthesia Note - EVALUATION WITHIN 48HRS OF ANESTHETIC Vital Signs in Normal Range: Yes Patient Participated in Evaluation: Yes Respiratory Function Stable: Yes Airway Patent: Yes Cardiovascular Function Stable: Yes Hydration Status Stable: Yes Pain Control Satisfactory: Yes Nausea and Vomiting Control Satisfactory: Yes Mental Status Recovered: Yes Vital Signs: Last Vital Signs Temp 37.0 C 09/08/19 04:00 Pulse 98 09/08/19 04:00 Resp 16 09/08/19 04:00 BP 117/56 L 09/08/19 04:00 Pulse Ox 95 09/08/19 04:00 - COMMENTS/OBSERVATIONS Free Text/Narrative:: Doing well. Resting quietly. No problems noted post.
--- NOTE | 2019-09-08 09:34 | PCM.SURGPN ---
- General Info Date of Service: 09/08/19 POD#: 1 Functional Status: Reports: Pain Controlled - Review of Systems General: Reports: No Symptoms HEENT: Reports: No Symptoms Pulmonary: Reports: No Symptoms Cardiovascular: Reports: No Symptoms Gastrointestinal: Reports: No Symptoms Genitourinary: Reports: No Symptoms Musculoskeletal: Reports: No Symptoms Skin: Reports: No Symptoms Neurological: Reports: No Symptoms Psychiatric: Reports: No Symptoms - Patient Data Vitals - Most Recent: Last Vital Signs Temp 37.0 C 09/08/19 04:00 Pulse 98 09/08/19 04:00 Resp 16 09/08/19 04:00 BP 117/56 L 09/08/19 04:00 Pulse Ox 95 09/08/19 04:00 Weight - Most Recent: 90.265 kg I&O - Last 24 Hours: Intake & Output 09/07/19 09/08/19 09/08/19 22:59 06:59 14:59 Intake Total 2400 2630 Output Total 1900 Balance 2400 730 Lab Results Last 24 Hrs: Laboratory Results - last 24 hr 09/07/19 09/08/19 09/08/19 Range/Units 20:50 04:45 04:45 WBC 8.08 (4.0-11.0) K/uL RBC 4.15 L (4.30-5.90) M/uL Hgb 10.9 L (12.0-16.0) g/dL Hct 34.9 L (36.0-46.0) % MCV 84.1 (80.0-98.0) fL MCH 26.3 L (27.0-32.0) pg MCHC 31.2 (31.0-37.0) g/dL RDW Std Deviation 45.7 (28.0-62.0) fl RDW Coeff of Jenni 15 (11.0-15.0) % Plt Count 191 (150-400) K/uL MPV 10.80 (7.40-12.00) fL Neut % (Auto) 65.8 (48.0-80.0) % Lymph % (Auto) 26.7 (16.0-40.0) % Waller % (Auto) 6.4 (0.0-15.0) % Eos % (Auto) 0.9 (0.0-7.0) % Baso % (Auto) 0.2 (0.0-1.5) % Neut # (Auto) 5.3 (1.4-5.7) K/uL Lymph # (Auto) 2.2 (0.6-2.4) K/uL Waller # (Auto) 0.5 (0.0-0.8) K/uL Eos # (Auto) 0.1 (0.0-0.7) K/uL Baso # (Auto) 0.0 (0.0-0.1) K/uL Nucleated RBC % 0.0 /100WBC Nucleated RBCs # 0 K/uL Sodium 140 (136-145) mmol/L Potassium 3.8 (3.5-5.1) mmol/L Chloride 108 H (98-107) mmol/L Carbon Dioxide 26.1 (21.0-32.0) mmol/L BUN 9 (7.0-18.0) mg/dL Creatinine 0.9 (0.6-1.0) mg/dL Est Cr Clr Drug Dosing 91.01 mL/min Estimated GFR (MDRD) > 60.0 ml/min Glucose 175 H (74-106) mg/dL POC Glucose 146 H (60-110) mg/dL Calcium 7.9 L (8.5-10.1) mg/dL Med Orders - Current: Current Medications Lactated Ringer's (Ringers, Lactated) 1,000 mls @ 125 mls/hr IV ASDIRECTED [facility] Last Admin: 09/08/19 03:40 Dose: 125 mls/hr Acetaminophen 1,000 mg/ Premix 100 mls @ 400 mls/hr IV Q6H PRN PRN Reason: Pain Last Admin: 09/07/19 14:44 Dose: 400 mls/hr Ketorolac Tromethamine (Toradol) 30 mg IVPUSH Q6H PRN PRN Reason: Pain (severe 7-10) Stop: 09/12/19 14:00 Last Admin: 09/08/19 08:07 Dose: 30 mg Morphine Sulfate (Morphine) 4 mg IVPUSH Q2H PRN PRN Reason: Pain (severe 7-10) Ondansetron HCl (Zofran) 4 mg IVPUSH Q6H PRN PRN Reason: Nausea/Vomiting Oxycodone/Acetaminophen (Percocet 325-5 Mg) 1 tab PO Q4H PRN PRN Reason: Pain (moderate 4-6) Oxycodone/Acetaminophen (Percocet 325-5 Mg) 2 tab PO Q4H PRN PRN Reason: Pain (moderate 4-6) Promethazine HCl (Phenergan) 25 mg IM Q6H PRN PRN Reason: Nausea/Vomiting Sodium Chloride (Saline Flush) 10 ml FLUSH ASDIRECTED PRN PRN Reason: Keep Vein Open Sodium Chloride (Saline Flush) 2.5 ml FLUSH ASDIRECTED PRN PRN Reason: Keep Vein Open Sodium Chloride (Normal Saline) 10 ml IV ASDIRECTED PRN PRN Reason: IV Use Discontinued Medications Cefazolin Sodium (Ancef) Confirm Administered Dose 2 gm .ROUTE .STK-MED ONE Stop: 09/07/19 07:37 Fentanyl (Sublimaze) Confirm Administered Dose 250 mcg .ROUTE .STK-MED ONE Stop: 09/07/19 07:05 Fentanyl (Sublimaze) 50 mcg IVPUSH Q5M PRN PRN Reason: Pain Fluorescein Sodium (Ak-Fluor) Confirm Administered Dose 5 ml .ROUTE .STK-MED ONE Stop: 09/07/19 07:27 Glycopyrrolate (Robinul) Confirm Administered Dose 0.2 mg .ROUTE .STK-MED ONE Stop: 09/07/19 07:05 Hydromorphone HCl (Dilaudid) Confirm Administered Dose 2 mg .ROUTE .STK-MED ONE Stop: 09/07/19 12:23 Hydromorphone HCl (Dilaudid) Confirm Administered Dose 2 mg .ROUTE .STK-MED ONE Stop: 09/07/19 13:14 Cefazolin Sodium/Dextrose 2 gm (/ Premix) 50 mls @ 100 mls/hr IV ONETIME ONE Stop: 09/06/19 09:14 Last Admin: 09/07/19 16:10 Dose: Not Given Sodium Chloride (Normal Saline) Confirm Administered Dose 20 mls @ as directed .ROUTE .STK-MED ONE Stop: 09/07/19 07:37 Acetaminophen (Ofirmev) Confirm Administered Dose 100 mls @ as directed .ROUTE .STK-MED ONE Stop: 09/07/19 14:43 Ketorolac Tromethamine (Toradol) Confirm Administered Dose 30 mg .ROUTE .STK- MED ONE Stop: 09/07/19 07:05 Ketorolac Tromethamine (Toradol) 30 mg IVPUSH ONETIME ONE Stop: 09/07/19 14:01 Last Admin: 09/07/19 14:48 Dose: 30 mg Lidocaine (Xylocaine-Mpf 2%) Confirm Administered Dose 5 ml .ROUTE .STK-MED ONE Stop: 09/07/19 07:05 Midazolam HCl (Versed 1 Mg/Ml) Confirm Administered Dose 2 mg .ROUTE .STK-MED ONE Stop: 09/07/19 07:05 Midazolam HCl (Versed 1 Mg/Ml) Confirm Administered Dose 2 mg .ROUTE .STK-MED ONE Stop: 09/07/19 09:30 Last Admin: 09/07/19 09:55 Dose: 2 mg Midazolam HCl (Versed 1 Mg/Ml) 1 mg IVPUSH ONETIME ONE Stop: 09/07/19 10:27 Last Admin: 09/07/19 11:00 Dose: 1 mg Octyl Cyanoacrylate (Dermabond Advance) Confirm Administered Dose 1 applic .ROUTE .STK-MED ONE Stop: 09/07/19 07:27 Ondansetron HCl (Zofran) Confirm Administered Dose 4 mg .ROUTE .STK-MED ONE Stop: 09/07/19 07:05 Propofol (Diprivan 20 Ml) Confirm Administered Dose 200 mg .ROUTE .STK-MED ONE Stop: 09/07/19 07:05 Sugammadex Sodium (Bridion) Confirm Administered Dose 200 mg .ROUTE .STK-MED ONE Stop: 09/07/19 07:02 - Exam Wound/Incisions: Healing Well General: Alert, Oriented HEENT: Pupils Equal Neck: Supple Lungs: Clear to Auscultation, Normal Respiratory Effort Cardiovascular: Regular Rate, Regular Rhythm GI/Abdominal Exam: Normal Bowel Sounds, Soft, Non-Tender, No Organomegaly, No Distention, No Abnormal Bruit, No Mass, Pelvis Stable Extremities: Normal Inspection, Normal Range of Motion, Non-Tender, No Pedal Edema, Normal Capillary Refill Skin: Warm, Dry, Intact Neurological: No New Focal Deficit Psy/Mental Status: Alert, Normal Affect, Normal Mood Sepsis Event Note - Evaluation Sepsis Screening Result: No Definite Risk - Focused Exam Vital Signs: Vital Signs Temp Pulse Resp BP Pulse Ox 09/08/19 04:00 37.0 C 98 16 117/56 L 95 09/08/19 00:24 36.5 C 99 18 104/68 99 Date Exam was Performed: 09/08/19 Time Exam was Performed: 09:32 - Problem List Review Problem List Initiated/Reviewed/Updated: Yes - My Orders Last 24 Hours: Active Orders 24 hr Category Date Time Status Patient Status [ADT] Routine ADT 09/07/19 14:00 Active Antiembolic Devices [RC] PER UNIT ROUTINE Care 09/07/19 14:01 Active Notify Provider Vital Signs [RC] ASDIRECTED Care 09/07/19 14:00 Active Oxygen Therapy [RC] ASDIRECTED Care 09/07/19 14:00 Active RT Incentive Spirometry [RC] Q2HWA Care 09/07/19 14:00 Active Up With Assistance [RC] PER UNIT ROUTINE Care 09/07/19 14:00 Active Vital Signs [RC] PER UNIT ROUTINE Care 09/07/19 14:00 Active Regular Diet [DIET] Diet 09/07/19 Dinner Active Acetaminophen [Ofirmev] 1,000 mg Med 09/07/19 08:50 Active Premix Bag 1 bag IV Q6H Acetaminophen/oxyCODONE [Percocet 325-5 MG] Med 09/07/19 14:00 Active 1 tab PO Q4H PRN Acetaminophen/oxyCODONE [Percocet 325-5 MG] Med 09/07/19 14:00 Active 2 tab PO Q4H PRN Ketorolac [Toradol] Med 09/07/19 14:00 Active 30 mg IVPUSH Q6H PRN Morphine Med 09/07/19 14:00 Active 4 mg IVPUSH Q2H PRN Ondansetron [Zofran] Med 09/07/19 14:00 Active 4 mg IVPUSH Q6H PRN Promethazine [Phenergan] Med 09/07/19 14:00 Active 25 mg IM Q6H PRN Peripheral IV Discontinue [OM.PC] Routine Oth 09/07/19 14:00 Ordered Sequential Compression Device [OM.PC] Per Unit Routine Oth 09/07/19 14:00 Ordered Resuscitation Status Routine Resus Stat 09/07/19 14:00 Ordered Medication Orders Lactated Ringer's (Ringers, Lactated) 1,000 mls @ 125 mls/hr IV ASDIRECTED [facility] Last Admin: 09/08/19 03:40 Dose: 125 mls/hr Infusion: 09/08/19 03:40 Dose: 125 mls/hr Admin: 09/07/19 20:19 Dose: 125 mls/hr Infusion: 09/07/19 16:48 Dose: 125 mls/hr Admin: 09/07/19 08:48 Dose: 125 mls/hr Acetaminophen 1,000 mg/ Premix 100 mls @ 400 mls/hr IV Q6H PRN PRN Reason: Pain Last Admin: 09/07/19 14:44 Dose: 400 mls/hr Ketorolac Tromethamine (Toradol) 30 mg IVPUSH Q6H PRN PRN Reason: Pain (severe 7-10) Stop: 09/12/19 14:00 Last Admin: 09/08/19 08:07 Dose: 30 mg Morphine Sulfate (Morphine) 4 mg IVPUSH Q2H PRN PRN Reason: Pain (severe 7-10) Ondansetron HCl (Zofran) 4 mg IVPUSH Q6H PRN PRN Reason: Nausea/Vomiting Oxycodone/Acetaminophen (Percocet 325-5 Mg) 1 tab PO Q4H PRN PRN Reason: Pain (moderate 4-6) Oxycodone/Acetaminophen (Percocet 325-5 Mg) 2 tab PO Q4H PRN PRN Reason: Pain (moderate 4-6) Promethazine HCl (Phenergan) 25 mg IM Q6H PRN PRN Reason: Nausea/Vomiting Sodium Chloride (Saline Flush) 10 ml FLUSH ASDIRECTED PRN PRN Reason: Keep Vein Open Sodium Chloride (Saline Flush) 2.5 ml FLUSH ASDIRECTED PRN PRN Reason: Keep Vein Open Sodium Chloride (Normal Saline) 10 ml IV ASDIRECTED PRN PRN Reason: IV Use - Assessment Assessment (Free Text/Narrative):: Status post laparoscopic SALVADOR/BSO and cystoscopy postoperative day #1 the patient is doing well ambulatory minimum bleeding vital signs stable on regular diet - Plan Plan (Free Text/Narrative):: The patient will be discharged today the postvasectomy instruction is given to the patient there is no restriction on her diet prescription for Narco 5/325 for postoperative pain is given and the patient is already have an appointment to see me in the office in one week
[2019-09-08 09:53] VITALS: BP 113/73; PULSE 100
--- NOTE | 2019-09-08 13:55 | OR ---
SURGEON: Adalberto Campbell MD DATE OF PROCEDURE: 09/07/2019 PREOPERATIVE DIAGNOSIS: 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. POSTOPERATIVE DIAGNOSIS: Stage III endometriosis with bilateral endometrioma with adhesion of the pelvis, of the ovaries to the back of the uterus, and the cul-de-sac. OPERATIONS PERFORMED: Multiple-puncture diagnostic laparoscopy, lysis of adhesions, total laparoscopic hysterectomy, laparoscopic bilateral salpingo-oophorectomy, and cystoscopy. 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 ANESTHESIA: General endotracheal intubation. Tremaine Cortez and Dr. Jones. ESTIMATED BLOOD LOSS: 150 mL. COMPLICATIONS: None. INDICATIONS FOR SURGERY: Refer to the admit note. FINDINGS: The patient had stage III endometriosis with dense adhesion of the ovary to the back of the uterus, the cul-de-sac, and the uterosacral ligament with bilateral endometrioma. The patient has had multiple diagnostic laparoscopies and exploratory laparotomies for this problem. PROCEDURE IN DETAIL: The patient was brought to the OR, properly identified, and after adequate level of anesthesia, the patient was placed in lithotomy position with an access to the abdomen and the vagina. The patient was prepped and draped in a sterile fashion as usual. A weighted speculum was placed in the vagina and Pollack catheter placed in the bladder for drainage and CooperSurgical colpotomizer and manipulator were placed in the uterus for manipulation and the proper balloon was deployed and then after the surgeon changed his gloves, the operation shifted abdominally. Stab wound done beneath the umbilicus. The Veress needle was placed in the peritoneal cavity and that cavity insufflated with 3.5 of carbon dioxide, and then utilizing the Visiport technique, the 5 mm trocar beneath the umbilicus was entered, entering the peritoneal cavity under direct vision. Once this was done, the patient was placed in steep Trendelenburg and then 10/12 trocar placed in the left iliac fossa and 5 mm trocar in the right iliac fossa. Inspection of the pelvis revealed the above mentioned dictated finding. The operation was started by identifying the landmark of the pelvis and we proceeded by using the Harmonic scalpel to lyse the adhesion from the cul- de-sac area and the uterosacral ligament. The bilateral endometrioma were aspirated and both ovaries were freed from their attachments with meticulous sharp and blunt dissection. Once this was done, we proceeded with the hysterectomy. The superior pedicle was coagulated, transected using the Vincent Harmonic scalpel and the same thing was done with the round ligament on both sides, making sure that the ureter was away from harm's way and then the anterior leaf of the broad ligament was dissected downward medially, pushing the bladder completely away from the operative field. Once this was done, the uterine vessel was coagulated, transected at the level of the manipulator and then circular incision in the vaginal mucosa around the tip of the manipulator, detaching the cervix from its attachment to the vagina and then the uterus, cervix, and both ovaries and tubes were removed vaginally. Pneumoperitoneum was re-established by placing vaginal pack in the vagina and then thorough irrigation of the pelvis showed no oozing, no bleeding. We proceeded to close the vaginal cuff laparoscopically. While we were accomplishing that, I asked the anesthesiologist to give the patient fluorescein and after closing the vaginal cuff, the Pollack catheter was removed and cystoscopy was performed. The bladder was intact. Both ureteral orifices were seen with the dye coming from both of them. Satisfied with these findings, the procedure was ended. Instrument and sponge count was retrieved from the abdomen and the vagina and the multiple laparoscopic incisions were closed in layers. The patient tolerated the procedure well, went to recovery room in stable general condition. GURDEEP / LA NENA /[id number]
== END 2019-09-08 11:00 | disposition home or self-care (01) ==
LOC: MW.SDS 07:56 → MW.MS 15:16 → MW.SDS 09-08 11:00
PROVIDERS: ATTEND Obstetrics & Gynecology
DX: N84.0 Polyp of corpus uteri (principal); D25.9 Leiomyoma of uterus, unspecified; N80.0 Endometriosis of uterus; N80.1 Endometriosis of ovary; K21.9 Gastro-esophageal reflux disease without esophagitis; F41.9 Anxiety disorder, unspecified; F31.9 Bipolar disorder, unspecified; Z87.891 Personal history of nicotine dependence; Z88.1 Allergy status to other antibiotic agents; Z88.2 Allergy status to sulfonamides; E66.3 Overweight; Z79.899 Other long term (current) drug therapy; Z68.27 Body mass index [BMI] 27.0-27.9, adult
CPT/HCPCS: 36415; 58571; 80048; 82962; 84703; 85025; 85027; 86850; 86900; 86901; 88307; A9270; J0131; J0690; J1170; J1885; J2001; J2250; J2405; J2704; J3010; J3490; J7120

== ENCOUNTER 2020-12-19 06:20 | Day surgery (SDC) | payer MEDICAID ==
[2020-12-19] MEDS ORDERED: Lidocaine 2% 5 ML SDV ONE (07:19)
[2020-12-19] MEDS ORDERED: Rocuronium Bromide 50 MG/5 ML Syringe ONE ×2 (07:19→08:49)
[2020-12-19] MEDS ORDERED: Propofol 200 MG/20 ML SDV ONE (07:19)
[2020-12-19] MEDS ORDERED: Ondansetron 4 MG/2 ML SDV ONE (07:19)
[2020-12-19] MEDS ORDERED: fentaNYL 100 MCG/2 ML SDV ONE ×2 (07:20→08:48)
[2020-12-19] MEDS ORDERED: Midazolam 1 MG/ML 2 ML SDV ONE (07:20)
[2020-12-19] MEDS ORDERED: Octyl 2-Cyanoacrylate 1 Tube ONE (07:31)
[2020-12-19] MEDS ORDERED: Bupivacaine 0.5% 30 ML SDV ONE (07:31)
--- NOTE | 2020-12-19 07:34 | PCM.PREANE ---
Preanesthetic Assessment - Procedure Proposed Procedure: Dx Lap, poss oophorectomy - Anesthesia/Transfusion/Family Hx Anesthesia History: Prior Anesthesia Without Reaction Other Type of Anesthesia Reaction Comment: Sore throat for 2 days after lap appy 5 months ago Transfusion History: No Prior Transfusion(s) Intubation History: Unknown - Review of Systems General: No Symptoms Pulmonary: No Symptoms (Quit smoking x 6yrs) Cardiovascular: No Symptoms Gastrointestinal: No Symptoms (GERD, HH, well controlled) Neurological: No Symptoms Other: Reports: Diabetes (NIDDM A1C= 7.4) - Physical Assessment NPO Status Date: 12/18/20 NPO Status Time: 21:00 Vital Signs: Last Vital Signs Temp 97.2 F 12/19/20 06:37 Pulse 101 H 12/19/20 06:37 Resp 16 12/19/20 06:37 BP 126/86 12/19/20 06:37 Pulse Ox 98 12/19/20 06:37 Height: 5 ft 11 in Weight: 93.44 kg ASA Class: 2 Mental Status: Alert & Oriented x3 Airway Class: Mallampati = 2 Dentition: Reports: Normal Dentition Thyro-Mental Finger Breadths: 3 Mouth Opening Finger Breadths: 3 ROM/Head Extension: Full Lungs: Clear to Auscultation, Normal Respiratory Effort Cardiovascular: Regular Rate, Regular Rhythm - Lab Values: Laboratory Last Values POC Glucose 167 mg/dL (70-99) H 12/19/20 06:32 Urine HCG, Qual NEGATIVE (NEGATIVE) 12/19/20 06:30 - Allergies Allergies/Adverse Reactions: Allergies Allergy/AdvReac Type Severity Reaction Status Date / Time clarithromycin [From Biaxin] Allergy Hives Verified 12/17/20 09:11 sulfamethoxazole Allergy Hives Verified 12/17/20 09:11 [From Bactrim] trimethoprim [From Bactrim] Allergy Hives Verified 12/17/20 09:11 - Acknowledgements Anesthesia Type Planned: General Anesthesia Pt an Appropriate Candidate for the Planned Anesthesia: Yes Alternatives and Risks of Anesthesia Discussed w Pt/Guardian: Yes Pt/Guardian Understands and Agrees with Anesthesia Plan: Yes PreAnesthesia Questionnaire HEENT History: Reports: Other (See Below) Other HEENT History: wears glasses, hx of fx nose Cardiovascular History: Reports: None Respiratory History: Reports: None Gastrointestinal History: Reports: GERD, Hiatal Hernia Genitourinary History: Reports: Renal Calculus 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: Reports: 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, Fibroids, Musculoskeletal History: Reports: Fracture Other Musculoskeletal History: hx fx arm, ankle and nose Neurological History: Reports: Migraines, Other (See Below) Other Neuro History: migraines in the past Psychiatric History: Reports: Anxiety, Bipolar, Depression, Suicide Attempt Endocrine/Metabolic History: Reports: Diabetes, Gestational, Diabetes, Type II Hematologic History: Reports: None Immunologic History: Reports: None Oncologic (Cancer) History: Reports: None Dermatologic History: Reports: None - Infectious Disease History Infectious Disease History: Reports: None - Past Surgical History Head Surgeries/Procedures: Reports: None HEENT Surgical History: Reports: None Cardiovascular Surgical History: Reports: None Respiratory Surgical History: Reports: None GI Surgical History: Reports: Appendectomy, Colonoscopy, EGD Female Surgical History: Reports: Breast Biopsy, Hysterectomy, Other (See Below) Other Female Surgeries/Procedures: hx laparoscopy with ovarian cystectomy x2, partial hysterectomy Endocrine Surgical History: Reports: None Neurological Surgical History: Reports: None Musculoskeletal Surgical History: Reports: None Oncologic Surgical History: Reports: Biopsy of Breast Dermatological Surgical History: Reports: None - SUBSTANCE USE Tobacco Use Status *Q: Former Tobacco User Tobacco Use Within Last Twelve Months: No - HOME MEDS Home Medications: Home Meds ARIPiprazole [Abilify] 10 mg PO DAILY 12/07/17 [History] Omeprazole 20 mg PO ASDIRECTED PRN 12/07/17 [History] cloNIDine [Catapres] 0.1 mg PO ASDIRECTED PRN 12/07/17 [History] Benztropine Mesylate 0.5 mg PO BID 09/04/19 [History] buPROPion [Wellbutrin] 300 mg PO DAILY 09/04/19 [History] Lansoprazole [Prevacid 24Hr] 1 tab PO ASDIRECTED PRN 12/17/20 [History] Vilazodone HCl [Viibryd] 20 mg PO DAILY 12/17/20 [History] metFORMIN HCl [Metformin HCl] 500 mg PO WITHDINNER 12/17/20 [History] - CURRENT (IN HOUSE) MEDS Current Meds: Current Medications Discontinued Medications Fentanyl (Fentanyl 100 Mcg/2 Ml Sdv) Confirm Administered Dose 100 mcg .ROUTE .STK-MED ONE Stop: 12/19/20 07:21 Lidocaine (Lidocaine 2% 5 Ml Sdv) Confirm Administered Dose 5 ml .ROUTE .STK-MED ONE Stop: 12/19/20 07:20 Midazolam HCl (Midazolam 1 Mg/Ml 2 Ml Sdv) Confirm Administered Dose 2 mg .ROUTE .STK-MED ONE Stop: 12/19/20 07:21 Ondansetron HCl (Ondansetron 4 Mg/2 Ml Sdv) Confirm Administered Dose 4 mg .ROUTE .STPocket Social-MED ONE Stop: 12/19/20 07:20 Propofol (Propofol 200 Mg/20 Ml Sdv) Confirm Administered Dose 200 mg .ROUTE .STPocket Social-MED ONE Stop: 12/19/20 07:20 Rocuronium [place] (Rocuronium [place] 50 Mg/5 Ml Syringe) Confirm Administered Dose 50 mg .ROUTE .STPocket Social-MED ONE Stop: 12/19/20 07:20
[2020-12-19] MEDS ORDERED: Ondansetron 4 MG/2 ML SDV IVPUSH PRN (08:26)
[2020-12-19] MEDS ORDERED: Albuterol 0.083% 2.5 MG/3 ML Neb Soln NEB PRN (08:26)
[2020-12-19] MEDS ORDERED: Metoclopramide 10 MG/2 ML SDV IVPUSH PRN (08:26)
[2020-12-19] MEDS ORDERED: fentaNYL 100 MCG/2 ML SDV IVPUSH PRN (08:26)
[2020-12-19] MEDS ORDERED: Morphine 10 MG/ML Syringe IVPUSH PRN (08:26)
[2020-12-19] MEDS ORDERED: Naloxone 0.4 MG/ML Syringe IVPUSH PRN (08:26)
[2020-12-19] MEDS ORDERED: HYDROmorphone 1 MG/ML Syringe IVPUSH PRN (08:26)
[2020-12-19] MEDS ORDERED: Fluorescein 5 ML Vial ONE (09:04)
[2020-12-19] MEDS ORDERED: Ketorolac 30 MG/ML SDV ONE (09:09)
[2020-12-19] MEDS ORDERED: Sugammadex Sodium 200 MG/2 ML VIAL ONE (09:24)
--- NOTE | 2020-12-19 09:30 | PCM.OPNOTE ---
- General Post-Op/Procedure Note Date of Surgery/Procedure: 12/19/20 Operative Procedure(s): Dignostic Laparascopy Pre Op Diagnosis: Endometreosis Post-Op Diagnosis: Same Anesthesia Technique: General ET Tube Primary Surgeon: Adalberto Campbell EBL in mLs: 100 Complications: None Condition: Good
--- NOTE | 2020-12-19 09:32 | PCM.DCSUM1 ---
Discharge Summary - Hospital Course Diagnosis: Stroke: No - Discharge Data Discharge Date: 12/19/20 Discharge Disposition: Home, Self-Care 01 Condition: Good - Referral to Home Health Primary Care Physician: Galindo Manning MD - Patient Summary/Data Operative Procedure(s) Performed: Dignostic Laparascopy - Patient Instructions Diet: Usual Diet as Tolerated Activity: As Tolerated Driving: Do Not Drive - Discharge Plan Home Medications: Home Meds ARIPiprazole [Abilify] 10 mg PO DAILY 12/07/17 [History] Omeprazole 20 mg PO ASDIRECTED PRN 12/07/17 [History] cloNIDine [Catapres] 0.1 mg PO ASDIRECTED PRN 12/07/17 [History] Benztropine Mesylate 0.5 mg PO BID 09/04/19 [History] buPROPion [Wellbutrin] 300 mg PO DAILY 09/04/19 [History] Lansoprazole [Prevacid 24Hr] 1 tab PO ASDIRECTED PRN 12/17/20 [History] Vilazodone HCl [Viibryd] 20 mg PO DAILY 12/17/20 [History] metFORMIN HCl [Metformin HCl] 500 mg PO WITHDINNER 12/17/20 [History] - Discharge Summary/Plan Comment DC Time >30 min.: Yes Total # of Minutes for Discharge Time: 30 - Patient Data Vitals - Most Recent: Last Vital Signs Temp 36.2 C 12/19/20 06:37 Pulse 101 H 12/19/20 06:37 Resp 16 12/19/20 06:37 BP 126/86 12/19/20 06:37 Pulse Ox 98 12/19/20 06:37 Weight - Most Recent: 93.44 kg Lab Results - Last 24 hrs: Laboratory Results - last 24 hr 12/19/20 12/19/20 Range/Units 06:30 06:32 POC Glucose 167 H (70-99) mg/dL Urine HCG, Qual NEGATIVE (NEGATIVE) Med Orders - Current: Current Medications Albuterol (Albuterol 0.083% 2.5 Mg/3 Ml Neb Soln) 2.5 mg NEB ONETIME PRN PRN Reason: Wheezing Droperidol (Droperidol 5 Mg/2 Ml Sdv) 0.625 mg IVPUSH ONETIME PRN PRN Reason: Nausea/Vomiting Fentanyl (Fentanyl 100 Mcg/2 Ml Sdv) 50 mcg IVPUSH Q5M PRN PRN Reason: Pain (mild 1-3) Hydromorphone HCl (Hydromorphone 1 Mg/Ml Syringe) 1 mg IVPUSH Q10M PRN PRN Reason: Pain (moderate 4-6) Metoclopramide HCl (Metoclopramide 10 Mg/2 Ml Sdv) 10 mg IVPUSH ONETIME PRN PRN Reason: Nausea/Vomiting Morphine Sulfate (Morphine 10 Mg/Ml Syringe) 2 mg IVPUSH Q10M PRN PRN Reason: Pain (severe 7-10) Naloxone HCl (Naloxone 0.4 Mg/Ml Syringe) 0.1 mg IVPUSH ASDIRECTED PRN PRN Reason: Respiratory Depression Ondansetron HCl (Ondansetron 4 Mg/2 Ml Sdv) 4 mg IVPUSH ONETIME PRN PRN Reason: Nausea/Vomiting Discontinued Medications Bupivacaine HCl (Bupivacaine 0.5% 30 Ml Sdv) Confirm Administered Dose 30 ml .ROUTE .STK-MED ONE Stop: 12/19/20 07:32 Fentanyl (Fentanyl 100 Mcg/2 Ml Sdv) Confirm Administered Dose 100 mcg .ROUTE .STK-MED ONE Stop: 12/19/20 07:21 Fentanyl (Fentanyl 100 Mcg/2 Ml Sdv) Confirm Administered Dose 100 mcg .ROUTE .STK-MED ONE Stop: 12/19/20 08:49 Fluorescein Sodium (Fluorescein 5 Ml Vial) Confirm Administered Dose 5 ml .ROUTE .STK-MED ONE Stop: 12/19/20 09:05 Cefazolin Sodium/Dextrose (Ancef 2 Gm/50 Ml) Confirm Administered Dose 50 mls @ as directed .ROUTE .STK-MED ONE Stop: 12/19/20 08:12 Acetaminophen (Ofirmev 1000 Mg/100 Ml) Confirm Administered Dose 100 mls @ as directed .ROUTE .STK-MED ONE Stop: 12/19/20 08:13 Ketorolac Tromethamine (Ketorolac 30 Mg/Ml Sdv) Confirm Administered Dose 30 mg .ROUTE .STK-MED ONE Stop: 12/19/20 09:10 Lidocaine (Lidocaine 2% 5 Ml Sdv) Confirm Administered Dose 5 ml .ROUTE .STK-MED ONE Stop: 12/19/20 07:20 Midazolam HCl (Midazolam 1 Mg/Ml 2 Ml Sdv) Confirm Administered Dose 2 mg .ROUTE .STK-MED ONE Stop: 12/19/20 07:21 Octyl Cyanoacrylate (Octyl 2-Cyanoacrylate 1 Tube) Confirm Administered Dose 1 applic .ROUTE .STCubbying-MED ONE Stop: 12/19/20 07:32 Ondansetron HCl (Ondansetron 4 Mg/2 Ml Sdv) Confirm Administered Dose 4 mg .ROUTE .STCubbying-MED ONE Stop: 12/19/20 07:20 Propofol (Propofol 200 Mg/20 Ml Sdv) Confirm Administered Dose 200 mg .ROUTE .STCubbying-MED ONE Stop: 12/19/20 07:20 Rocuronium [place] (Rocuronium [place] 50 Mg/5 Ml Syringe) Confirm Administered Dose 50 mg .ROUTE .STCubbying-MED ONE Stop: 12/19/20 07:20 Rocuronium [place] (Rocuronium [place] 50 Mg/5 Ml Syringe) Confirm Administered Dose 50 mg .ROUTE .STCubbying-MED ONE Stop: 12/19/20 08:50 Sugammadex Sodium (Sugammadex Sodium 200 Mg/2 Ml Vial) Confirm Administered Dose 200 mg .ROUTE .STCubbying-MED ONE Stop: 12/19/20 09:25
--- NOTE | 2020-12-19 09:51 | PCM.POSTAN ---
POST ANESTHESIA ASSESSMENT - MENTAL STATUS Mental Status: Alert, Oriented - VITAL SIGNS Vital Signs: Last Vital Signs Temp 98.4 F 12/19/20 09:35 Pulse 82 12/19/20 09:41 Resp 13 12/19/20 09:41 BP 126/67 12/19/20 09:41 Pulse Ox 96 12/19/20 09:41 - RESPIRATORY Respiratory Status: Respiratory Rate WNL, Airway Patent, O2 Saturation Stable - CARDIOVASCULAR CV Status: Pulse Rate WNL, Blood Pressure Stable - GASTROINTESTINAL GI Status: No Symptoms - PAIN Pain Score: 3 - POST OP HYDRATION Hydration Status: Adequate & Stable
--- NOTE | 2020-12-19 10:00 | PCM48HPAN ---
Post Anesthesia Note - EVALUATION WITHIN 48HRS OF ANESTHETIC Vital Signs in Normal Range: Yes Patient Participated in Evaluation: Yes Respiratory Function Stable: Yes Airway Patent: Yes Cardiovascular Function Stable: Yes Hydration Status Stable: Yes Pain Control Satisfactory: Yes Nausea and Vomiting Control Satisfactory: Yes Mental Status Recovered: Yes Vital Signs: Last Vital Signs Temp 98.4 F 12/19/20 09:35 Pulse 85 12/19/20 09:55 Resp 17 12/19/20 09:55 BP 131/71 12/19/20 09:55 Pulse Ox 98 12/19/20 09:55 - COMMENTS/OBSERVATIONS Free Text/Narrative:: Pt doing well post-op. VSS. No apparent anesthetic complications. Dr. Francisco Gonzalez
[2020-12-19 11:03] VITALS: BP 124/59; PULSE 73
--- NOTE | 2020-12-19 14:19 | OR ---
SURGEON: Adalberto Campbell MD DATE OF PROCEDURE: 12/19/2020 PREOPERATIVE DIAGNOSES: Pelvic pain, history of endometriosis. POSTOPERATIVE DIAGNOSES: Pelvic pain, history of endometriosis. OPERATION PERFORMED: Multiple puncture diagnostic laparoscopy, lysis of adhesion, removal of the right residual ovarian tissue, and removing of the endometriosis from the pelvic sidewall. 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 ANESTHESIA: General endotracheal intubation. ESTIMATED BLOOD LOSS: 100 mL. COMPLICATIONS: None. FINDINGS: Pelvic adhesion, residual right ovary, and endometriotic spot in the right pelvic sidewall. INDICATIONS FOR SURGERY: This patient is status post hysterectomy and oophorectomy for stage III endometriosis 2 years ago. However, the patient presented back with pelvic pain. Ultrasound and CAT scan show large residual right ovary. The patient is admitted with the intention of doing diagnostic laparoscopy and removal of the residual ovary. PROCEDURE IN DETAIL: The patient was brought to the OR, properly identified. After adequate level of anesthesia, the patient was placed in lithotomy position, prepped and draped in sterile fashion as usual. Straight catheter was used to empty the bladder, and sponge and stick were placed in the vagina for identification and manipulation. A small incision was made beneath the umbilicus. The Veress needle was placed in the peritoneal cavity and that cavity was insufflated with sufficient amount of carbon dioxide and then utilizing the Visiport technique midline, the central trocar beneath the umbilicus was placed, and then 10/12 trocar placed in the left iliac fossa and two 5 mm trocar in the right and left. The right one was in the right iliac fossa, one suprapubically. The operation was started by placing the patient in steep Trendelenburg and assessing the anatomy and familiarizing with the pelvis. There was pelvic adhesion, adhesion of the sigmoid colon to the cul-de-sac. However, there were few spots of endometriosis on the right pelvic sidewall. It was picked individually and removed utilizing the Endo scissors, and there was a 4 cm to 5 cm cystic mass representing the residual ovary on the right side that was adherent to the pelvic sidewall, and with sharp and blunt dissection, I was able to dissect and free this mass and removing with the aid of Harmonic scalpel. After identifying the landmark of the pelvis, the residual ovary was identified and with sharp and blunt and hydrodissection, it was isolated from its adhesion to the pelvic sidewall and cul-de-sac, and utilizing the Harmonic scalpel at the base of the residual ovary, it was coagulated, transected, and residual ovary removed. Once we did that, then thorough irrigation of the pelvis was done. There were no oozing, no bleeding. There was no apparent injury to any other organs. However, I decided because I was close to the right side pelvic sidewall, I decided to do cystoscopy, so we asked Anesthesia to give the patient fluorescein, and then cystoscopy was performed. The bladder was intact. Both ureteric orifice was seen with the dye coming out from both of them. Thus, the patency of both ureters verified. Satisfied with this procedure, the instrument and hardware were retrieved from the abdomen and the vagina, and the multiple laparoscopic incisions were closed in layers. The procedure ended and tolerated very well by the patient, and she went to recovery room in stable general condition. GURDEEP / LA NENA /[id number]
== END 2020-12-19 11:28 | disposition home or self-care (01) ==
LOC: MW.SDS 06:20
PROVIDERS: ATTEND Obstetrics & Gynecology
DX: N83.01 Follicular cyst of right ovary (principal); N80.3 Endometriosis of pelvic peritoneum; N73.8 Other specified female pelvic inflammatory diseases; E11.9 Type 2 diabetes mellitus without complications; Z87.891 Personal history of nicotine dependence
CPT/HCPCS: 58662; 81025; 82947; 88305; A9270; J0131; J0690; J1885; J2250; J2704; J3010; J3490; J7030; 00840; J2405

== ENCOUNTER 2021-01-17 06:24 | Day surgery (SDC) | payer MEDICAID ==
--- NOTE | 2021-01-17 08:04 | PCM.PREANE ---
Preanesthetic Assessment - Procedure Proposed Procedure: Colonoscopy - Anesthesia/Transfusion/Family Hx Anesthesia History: Prior Anesthesia Without Reaction Other Type of Anesthesia Reaction Comment: Sore throat for 2 days after lap appy 5 months ago Transfusion History: No Prior Transfusion(s) Intubation History: Unknown - Review of Systems General: No Symptoms Pulmonary: No Symptoms (Quit smoking x 6yrs) Cardiovascular: No Symptoms Gastrointestinal: No Symptoms (GERD, HH well controlled) Neurological: No Symptoms Other: Reports: Diabetes (NIDDM on metformin), Anxiety (Bipolar) - Physical Assessment NPO Status Date: 01/15/21 NPO Status Time: 18:00 (Solids, >8Hrs Liq) Vital Signs: Last Vital Signs Temp 97.3 F 01/17/21 06:41 Pulse 95 01/17/21 06:41 Resp 16 01/17/21 06:41 BP 119/84 01/17/21 06:41 Pulse Ox 98 01/17/21 06:41 Height: 5 ft 11 in Weight: 96.162 kg ASA Class: 2 Mental Status: Alert & Oriented x3 Airway Class: Mallampati = 1 Dentition: Reports: Normal Dentition Thyro-Mental Finger Breadths: 3 Mouth Opening Finger Breadths: 3 ROM/Head Extension: Full Lungs: Clear to Auscultation, Normal Respiratory Effort Cardiovascular: Regular Rate, Regular Rhythm - Allergies Allergies/Adverse Reactions: Allergies Allergy/AdvReac Type Severity Reaction Status Date / Time clarithromycin [From Biaxin] Allergy Hives Verified 01/15/21 11:05 sulfamethoxazole Allergy Hives Verified 01/15/21 11:05 [From Bactrim] trimethoprim [From Bactrim] Allergy Hives Verified 01/15/21 11:05 - Acknowledgements Anesthesia Type Planned: General Anesthesia Pt an Appropriate Candidate for the Planned Anesthesia: Yes Alternatives and Risks of Anesthesia Discussed w Pt/Guardian: Yes Pt/Guardian Understands and Agrees with Anesthesia Plan: Yes PreAnesthesia Questionnaire HEENT History: Reports: Other (See Below) Other HEENT History: wears glasses, hx of fx nose Cardiovascular History: Reports: None Respiratory History: Reports: None Gastrointestinal History: Reports: GERD, Hiatal Hernia Genitourinary History: Reports: Renal Calculus 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: 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, 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, Musculoskeletal History: Reports: Fracture Other Musculoskeletal History: hx fx arm, ankle and nose Neurological History: Reports: Migraines, Other (See Below) Other Neuro History: migraines in the past Psychiatric History: Reports: Anxiety, Bipolar, Depression, Suicide Attempt Endocrine/Metabolic History: Reports: Diabetes, Gestational, Diabetes, Type II Hematologic History: Reports: None Immunologic History: Reports: None Oncologic (Cancer) History: Reports: None Dermatologic History: Reports: None - Infectious Disease History Infectious Disease History: Reports: None - Past Surgical History Head Surgeries/Procedures: Reports: None HEENT Surgical History: Reports: None Cardiovascular Surgical History: Reports: None Respiratory Surgical History: Reports: None GI Surgical History: Reports: Appendectomy, Colonoscopy, EGD Female Surgical History: Reports: Breast Biopsy, Cystectomy, Hysterectomy, Other (See Below) Other Female Surgeries/Procedures: hx laparoscopy with ovarian cystectomy x2, partial hysterectomy , hx of recent Laparoscopy with Lysis of Adhesions, Ablation of 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, and Ovarian Cystectomy Endocrine Surgical History: Reports: None Neurological Surgical History: Reports: None Musculoskeletal Surgical History: Reports: None Oncologic Surgical History: Reports: Biopsy of Breast Dermatological Surgical History: Reports: None - SUBSTANCE USE Tobacco Use Status *Q: Former Tobacco User Tobacco Use Within Last Twelve Months: No Recreational Drug Use History: No - HOME MEDS Home Medications: Home Meds ARIPiprazole [Abilify] 10 mg PO DAILY 12/07/17 [History] Omeprazole 20 mg PO ASDIRECTED PRN 12/07/17 [History] cloNIDine [Catapres] 0.1 mg PO ASDIRECTED PRN 12/07/17 [History] Benztropine Mesylate 0.5 mg PO BID 09/04/19 [History] buPROPion [Wellbutrin] 275 mg PO BID 09/04/19 [History] Lansoprazole [Prevacid 24Hr] 1 tab PO ASDIRECTED PRN 12/17/20 [History] Vilazodone HCl [Viibryd] 20 mg PO DAILY 12/17/20 [History] metFORMIN HCl [Metformin HCl] 500 mg PO WITHDINNER 12/17/20 [History] - CURRENT (IN HOUSE) MEDS Current Meds: Current Medications Lactated Ringer's (Ringers, Lactated) 1,000 mls @ 125 mls/hr IV ASDIRECTED [facility]
[2021-01-17] MEDS ORDERED: Lidocaine 2% 5 ML SDV ONE (08:15)
[2021-01-17] MEDS ORDERED: Propofol 200 MG/20 ML SDV ONE (08:15)
--- NOTE | 2021-01-17 08:52 | PCM.OPNOTE ---
- General Post-Op/Procedure Note Date of Surgery/Procedure: 01/17/21 Operative Procedure(s): Colonoscopy. Random Biopsies Findings: normal colonoscopy dictation number [id number] Pre Op Diagnosis: Left lower abdominal pain Post-Op Diagnosis: normal colonoscopy [place] [facility] [place] Surgeon: Domenico Ballard Pathology: random biopsies Complications: None Condition: Good
--- NOTE | 2021-01-17 09:05 | PCM.POSTAN ---
POST ANESTHESIA ASSESSMENT - MENTAL STATUS Mental Status: Alert, Oriented - VITAL SIGNS Vital Signs: Last Vital Signs Temp 97.9 F 01/17/21 08:43 Pulse 74 01/17/21 08:48 Resp 12 01/17/21 08:48 BP 101/65 01/17/21 08:48 Pulse Ox 95 01/17/21 08:48 - RESPIRATORY Respiratory Status: Respiratory Rate WNL, Airway Patent, O2 Saturation Stable - CARDIOVASCULAR CV Status: Pulse Rate WNL, Blood Pressure Stable - GASTROINTESTINAL GI Status: No Symptoms - PAIN Pain Score: 0 - POST OP HYDRATION Hydration Status: Adequate & Stable - OBSERVATIONS Free Text/Narrative:: Pt doing well post-op. VSS. No apparent anesthetic complications. Dr. Francisco Gonzalez
--- NOTE | 2021-01-17 09:08 | PCM48HPAN ---
Post Anesthesia Note - EVALUATION WITHIN 48HRS OF ANESTHETIC Vital Signs in Normal Range: Yes Patient Participated in Evaluation: Yes Respiratory Function Stable: Yes Airway Patent: Yes Cardiovascular Function Stable: Yes Hydration Status Stable: Yes Pain Control Satisfactory: Yes Nausea and Vomiting Control Satisfactory: Yes Mental Status Recovered: Yes Vital Signs: Last Vital Signs Temp 97.9 F 01/17/21 08:43 Pulse 79 01/17/21 09:04 Resp 16 01/17/21 09:05 BP 101/63 01/17/21 09:04 Pulse Ox 96 01/17/21 09:04 - COMMENTS/OBSERVATIONS Free Text/Narrative:: Pt doing well post-op. VSS. No apparent anesthetic complications. Dr. Francisco Gonzalez
[2021-01-17 09:35] VITALS: BP 103/63; PULSE 70
[2021-01-17] MEDS ORDERED: Lactated Ringers 1,000 ML IV SCH (09:45)
--- NOTE | 2021-01-18 09:36 | OR ---
SURGEON: HERMANN MCCRACKEN MD DATE OF PROCEDURE: 01/17/2021 PREOPERATIVE DIAGNOSIS: Left lower abdominal pain. POSTOPERATIVE DIAGNOSIS: Normal colonoscopy. PROCEDURE: Colonoscopy with random biopsies. PRIMARY SURGEON: Hermann Mccracken MD ANESTHESIA: With Anesthesiology. SPECIMENS: Random biopsies of the colon. BOWEL PREP: Excellent. LIMITATIONS: None. REASON FOR PROCEDURE: Patient is a pleasant 45-year-old female. For the past half year, she has been having pelvic pain along with some left lower abdominal pain. She come on suddenly over a couple of seconds and be severe like a stabbing pain, then it will slowly go away over the next day or so. Nothing that seems to bring the pain on, nothing that seems to help when she gets it. She did have a CT scan which showed some mild haziness in the left mesentery with prominent mesenteric lymph nodes. She also had a recent surgery to remove some endometriosis and an ovarian cyst. She said after that surgery, it helped with the pelvic pain, but she still has the left lower abdominal pain. Last colonoscopy was about three years ago, which was normal. She denies any change in her bowel habits. PROCEDURE IN DETAIL: Physical examination was performed, and the major risks and benefits associated with the procedure were explained to the patient in detail. The patient verbalized understanding of the same. The patient was then connected to the appropriate monitoring device and IV started. EKG, pulse, pulse oximetry, blood pressure, and capnography were monitored throughout the entire procedure. Continuous oxygen and sedation were provided by the anesthesiologist. The patient was placed in the left lateral decubitus position. Sedation began. After adequate sedation was achieved, a digital rectal exam was performed. No rectal masses or polyps felt. Now, a well-lubricated Olympus colonoscope was inserted into the rectum and advanced under direct visualization to the level of the cecum. The cecum was identified by both visual and anatomic landmarks. Photographs were taken of the cecal cap. The terminal ileum was also intubated. The scope was then slowly withdrawn in somewhat circular fashion looking at the color, texture, and anatomy of the mucosa from the cecum to the anal canal. The patient did have excellent bowel prep. Because the patient did have some increase size of her lymph nodes, I did do some random biopsies to make sure I did not miss any microscopic pathology or inflammation. Scope was retroflexed in the rectum. Scope was completely removed and procedure was terminated. ENDOSCOPIC DIAGNOSIS: Normal colonoscopy. RECOMMENDATIONS: Followup colonoscopy should be in 10 years; sooner if she develops signs and symptoms such as change in bowel habits or blood in stool. The patient will follow up in clinic to go over her pathology. LILLI DEUTSCH /[id number]
== END 2021-01-17 09:34 | disposition home or self-care (01) ==
LOC: MW.SDS 06:24
PROVIDERS: ATTEND Surgery
DX: R10.32 Left lower quadrant pain (principal); E11.9 Type 2 diabetes mellitus without complications; K21.9 Gastro-esophageal reflux disease without esophagitis; Z88.8 Allergy status to other drugs, medicaments and biological substances; Z79.899 Other long term (current) drug therapy; Z79.84 Long term (current) use of oral hypoglycemic drugs; Z90.49 Acquired absence of other specified parts of digestive tract; Z98.890 Other specified postprocedural states; Z87.891 Personal history of nicotine dependence
CPT/HCPCS: 45380; 88305; J2704; 00812

== ENCOUNTER 2022-10-17 14:54 | Emergency (ER) | payer BC ==
[2022-10-17 15:21] LABS: APPEARANCE,URINE CLOUDY; GLUCOSE,URINE NEGATIVE (NEGATIVE); KETONES,URINE TRACE mg/dL (NEGATIVE); LEUKOCYTE ESTERASE,URINE NEGATIVE (NEGATIVE); NITRITE,URINE NEGATIVE (NEGATIVE); OCCULT BLOOD,URINE LARGE (NEGATIVE); PROTEIN,URINE 100 mg/dL (NEGATIVE)
[2022-10-17 15:22] LABS: BILIRUBIN,URINE SMALL (NEGATIVE)
[2022-10-17 15:23] LABS: COLOR,URINE AMBER
[2022-10-17 15:27] LABS: BACTERIA,URINE MODERATE (NEGATIVE); EPITHELIAL CELLS,URINE MODERATE (NONE-FEW); HYALINE CASTS,URINE OCCASIONAL (0-2/LPF); MUCUS,URINE FEW (NONE-MOD); RBC,URINE >100 (0-2/HPF); SQUAMOUS EPITHELIAL CELLS,UR MODERATE; WBC,URINE 0-2 (0-5/HPF)
[2022-10-17] MEDS ORDERED: Morphine 4 MG/ML Syringe IVPUSH ONE ×2 (15:29→16:58)
[2022-10-17] MEDS ORDERED: Ketorolac 30 MG/ML SDV IVPUSH ONE (15:29)
[2022-10-17] MEDS ORDERED: Sodium Chloride 0.9% 1,000 ML IV ONE (15:29)
[2022-10-17] MEDS ORDERED: Sodium Chloride 0.9% 2.5 ML Syringe FLUSH PRN (15:29)
[2022-10-17] MEDS ORDERED: Sodium Chloride 0.9% 10 ML Syringe FLUSH PRN (15:29)
[2022-10-17] MEDS ORDERED: Ondansetron 4 MG/2 ML SDV IVPUSH ONE (15:29)
[2022-10-17] MEDS ORDERED: Ketorolac 30 MG/ML SDV ONE (15:37)
[2022-10-17 16:02] LABS: BASOPHILS PERCENT AUTO 0.4 % (0.0-1.5); EOSINOPHILS ABSOLUTE AUTO 0.1 K/uL (0.0-0.7); EOSINOPHILS PERCENT AUTO 0.6 % (0.0-7.0); HEMATOCRIT 41.2 % (36.0-46.0); HEMOGLOBIN 13.8 g/dL (12.0-16.0); LYMPHOCYTES ABSOLUTE AUTO 2.7 K/uL (0.6-2.4); LYMPHOCYTES PERCENT AUTO 31.5 % (16.0-40.0); MEAN CORPUSCULAR HEMOGLOBIN 28.5 pg (27.0-32.0); MEAN CORPUSCULAR HGB CONC 33.5 g/dL (31.0-37.0); MEAN CORPUSCULAR VOLUME 84.9 fL (80.0-98.0); MONOCYTES ABSOLUTE AUTO 0.6 K/uL (0.0-0.8); MONOCYTES PERCENT AUTO 6.9 % (0.0-15.0); NEUTROPHILS ABSOLUTE AUTO 5.1 K/uL (1.4-5.7); NEUTROPHILS PERCENT AUTO 60.6 % (48.0-80.0); NRBC ABSOLUTE 0 K/uL; PLATELET COUNT,PLT 256 K/uL (150-400); RED BLOOD CELL COUNT 4.85 M/uL (4.30-5.90); WHITE BLOOD CELL COUNT,WBC 8.45 K/uL (4.0-11.0)
[2022-10-17 16:33] LABS: A/G RATIO 1.2 (0.9-1.6); ALBUMIN 4.3 g/dL (3.4-5.0); BILIRUBIN TOTAL 0.4 mg/dL (0.2-1.0); CALCIUM 9.8 mg/dL (8.5-10.1); CARBON DIOXIDE,CO2 25.2 mmol/L (21.0-32.0); EST CRCL DRUG DOSING (CG) 79.4 mL/min; POTASSIUM,K 4.3 mmol/L (3.5-5.1); PROTEIN TOTAL,TP 7.9 g/dL (6.4-8.2)
[2022-10-17 17:59] VITALS: BP 119/75; PULSE 85
== END 2022-10-17 17:57 | disposition home or self-care (01) ==
LOC: MW.ED 14:54
DX: N13.2 Hydronephrosis with renal and ureteral calculous obstruction (principal); K21.9 Gastro-esophageal reflux disease without esophagitis; E11.9 Type 2 diabetes mellitus without complications; Z79.899 Other long term (current) drug therapy; Z88.1 Allergy status to other antibiotic agents; Z88.2 Allergy status to sulfonamides
CPT/HCPCS: 36415; 74176; 80053; 81001; 81025; 83690; 85025; 96361; 96374; 96375; 96376; 99284; J1885; J2270; J2405; J3490; J7030

== ENCOUNTER 2024-05-26 08:06 | Emergency (ER) | payer OTHER ==
[2024-05-26] MEDS ORDERED: Naloxone 0.4 MG/ML SDV IVPUSH PRN (08:41)
[2024-05-26] MEDS: fentaNYL 50 MCG/ML SDV IVPUSH ONE (08:47)
[2024-05-26 09:48] LABS: APPEARANCE,URINE CLEAR; COLOR,URINE YELLOW
[2024-05-26 09:49] LABS: BILIRUBIN,URINE NEGATIVE (NEGATIVE); GLUCOSE,URINE >1000 mg/dL (NEGATIVE); KETONES,URINE TRACE mg/dL (NEGATIVE); LEUKOCYTE ESTERASE,URINE NEGATIVE (NEGATIVE); NITRITE,URINE NEGATIVE (NEGATIVE); OCCULT BLOOD,URINE NEGATIVE (NEGATIVE); PROTEIN,URINE NEGATIVE (NEGATIVE); UROBILINOGEN,URINE <2.0 EU/dL (<2.0)
[2024-05-26 09:51] LABS: BACTERIA,URINE RARE (NEGATIVE); EPITHELIAL CELLS,URINE RARE (NONE-FEW); RBC,URINE 0-1 (0-2/HPF); WBC,URINE 0-1 (0-5/HPF)
[2024-05-26 11:09] VITALS: BP 101/55; PULSE 79
[2024-05-26] MEDS: Lidocaine 4% 1 each Patch TOP PRN (11:10)
== END 2024-05-26 11:12 | disposition home or self-care (01) ==
LOC: MW.ED 08:06
DX: M53.3 Sacrococcygeal disorders, not elsewhere classified (principal); K21.9 Gastro-esophageal reflux disease without esophagitis; E11.9 Type 2 diabetes mellitus without complications; Z90.49 Acquired absence of other specified parts of digestive tract; Z90.710 Acquired absence of both cervix and uterus; Z79.84 Long term (current) use of oral hypoglycemic drugs; Z79.899 Other long term (current) drug therapy; Z75.8 Other problems related to medical facilities and other health care
CPT/HCPCS: 72131; 72192; 81001; 96374; 99284; A9270; J3010